=== PATIENT | female | born 1950 | race Hispanic/Latino ===

== ENCOUNTER 2016-10-15 15:41 | Inpatient (IN) | payer MEDICARE ==
[2016-10-15] MEDS ORDERED: SENOKOT PO PRN (16:37)
[2016-10-15] MEDS ORDERED: DULCOLAX PR PRN (16:37)
[2016-10-15] MEDS ORDERED: D50W (25GM) IV PRN (16:37)
[2016-10-15] MEDS ORDERED: PROVENTIL IH PRN (16:43)
--- NOTE | 2016-10-15 18:47 | History and Physical Report ---
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 In comparison, pt acknowledges short term memory loss since recent hospitalization ; also with improving anemia, resolved leukocytosis on today; will need ongoing monitoring for acute renal failure. Pt continues with significant proximal weakness resulting in decline in functional independence. Pt remains an appropriate candidate for IPR course. PREVIOUS FUNCTIONAL STATUS: Independent with ADLs, gait, transfers CURRENT FUNCTIONAL STATUS: modA x2 for bed mobility; therapy evaluations to be initiated in AM HPI 65 y.o. morbidly obese female, with history of abdominal hernia repair in Jun 2016, who presented to [facility] with shortness of breath. Pt was found to have severe sepsis and in acute renal failure. Septic shock thought to be secondary to subcutaneous abdominal wall abscess, s/p incision and drainage on 09/30/2016. Pt required wound vac placement and IV ABX. Acute care course also significant for respiratory failure (extubated on 10/08/16), acute blood loss anemia s/p 1U pRBCs, acute BRBPR (now resolved). Pt was evaluated by PT and noted to have significant difficulty with bed mobility; unable to transfer due to anxiety and severe proximal LE weakness, likely secondary to critical illness myopathy. Pt is now admitted to IRU for aggressive therapies and ongoing medical management. Past History Past Medical History: diabetes, hypertension, other (KEYONNA, CPAP at night) Past Surgical History: hernia repair Social history: , lives with family. denies: smoking, alcohol abuse Family history: hypertension Medications and Allergies Allergies Allergy/AdvReac Type Severity Reaction Status Date / Time No Known Allergies Allergy Unverified 09/29/16 22:13 Home Medications Medication Instructions Recorded Confirmed Last Taken Type Losartan-Hctz 100-25 mg Tab 1 tab PO QDAY 09/30/16 09/30/16 1 Day Ago History Metformin HCl [Glucophage] 1,000 mg PO BID 09/30/16 09/30/16 1 Day Ago History Metoprolol [Lopressor] 25 mg PO BID 09/30/16 09/30/16 1 Day Ago History Pravastatin 100 mg PO QDAY 09/30/16 09/30/16 2 Days Ago History amLODIPine 5 mg PO QDAY 09/30/16 09/30/16 1 Day Ago History ALBUTEROL NEB's [Proventil 0.083% 2.5 mg IH Q4HRT PRN #30 nebu 10/15/16 Unknown Rx NEBS] Acetaminophen [Acetaminophen TAB] 650 mg PO Q6H PRN #30 tablet 10/15/16 Unknown Rx Famotidine [Pepcid] 20 mg PO BID #60 tablet 10/15/16 Unknown Rx Insulin Detemir [Levemir] 18 units SUB-Q DAILY #30 units 10/15/16 Unknown Rx Insulin Regular, Human [HumuLIN R] 1 units SUB-Q ACHS #30 units 10/15/16 Unknown Rx Ipratropium/Albuterol Sulfate 1 ampul IH TIDRT #30 ampul.neb 10/15/16 Unknown Rx [Duoneb 0.5 mg-3 mg/3 ml Soln] Active Meds: Active Medications Acetaminophen (Tylenol) 650 mg PO Q6H PRN PRN Reason: Pain, Mild (1-3) Albuterol (Proventil) 2.5 mg IH Q4HRT PRN PRN Reason: Shortness Of Breath Albuterol/Ipratropium (Duoneb 0.5 Mg-3 Mg/3 Ml Soln) 1 ampul IH TIDRT [facility] Amlodipine Besylate (Norvasc) 5 mg PO QDAY [facility] Bisacodyl (Dulcolax) 10 mg OR QDAY PRN PRN Reason: Constipation unrelieved by MOM Cholecalciferol (Vitamin D3) 1,000 unit PO QDAY [facility] Dextrose (D50w (25gm)) 50 ml IV PRN PRN PRN Reason: Hypoglycemia Famotidine (Pepcid) 20 mg PO BID [facility] Insulin Detemir (Levemir) 18 units SUB-Q DAILY [facility] Insulin Human Regular (Novolin R) 0 units SUB-Q ACHS [facility] PRN Reason: Protocol Senna (Senokot) 8.6 mg PO Q12H PRN PRN Reason: Laxative Effect Review of Systems All systems: negative Constitutional: poor appetite Cardiovascular: no chest pain, no lightheadedness Respiratory: cough Gastrointestinal: no nausea, no vomiting, no constipation Musculoskeletal: muscle weakness Psychiatric: anxiety, memory loss Exam - Constitutional Vitals: Vital Signs - 12hr 10/15/16 17:24 Temperature 97.7 F Respiratory 20 Rate Blood Pressure 138/75 [Right Arm] General appearance: no acute distress, obese, other ( present) - EENT Eyes: EOM intact ENT: hearing intact - Neck Neck: supple, normal ROM - Respiratory Respiratory effort: normal Respiratory: bilateral: CTA - Cardiovascular Rhythm: regular Heart Sounds: Present: S1 & S2 - Extremities Extremities: No edema - Gastrointestinal General gastrointestinal: Present: soft, non-tender, non-distended, normal bowel sounds, other (Wound vac at mid-abdomen) - Musculoskeletal Musculoskeletal: other (2/5 hip flexion and knee ext/flexion; 4/5 ankle DF/PF; 4 /5 BUE) - Neurologic Neurologic: CNII-XII intact, other (sensation grossly intact) - Psychiatric Psychiatric: appropriate mood/affect, intact judgment & insight, no memory intact (oriented to self; ; noted short memory deficits during exam), cooperative - Allied health notes FIMS assesment as documented by PT/OT/ST: Toileting Toileting FIM Score 1. Total Assistance Social interaction/Memory/Problem solving Social Interaction FIM Score 6. Modified [place] Memory FIM Score 3. Moderate Assistance Problem Solving FIM Score 3. Moderate Assistance Eating Eating FIM Score 7. Complete [place] - Labs Labs: Laboratory Results - last 72 hr 10/15/16 16:44 POC Glucose 230 H Assessment and Plan Assessment and plan: 65 y.o. 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 Acute care course further complicated by acute respiratory failure, acute blood loss anemia, GI Bleed. The patient is medically stable, however, requires ongoing medical management. Pt is appropriate for inpatient rehabilitation admission and is thought to be able to tolerate at least 3 hours of therapy a day, 5 days a week including 1 hour of physical therapy, 1 hour of occupational therapy, and 1 hour of speech therapy. Patient is able to understand and follow basic directions and has attainable rehab goals. Potential barriers/ complications include falls, depression, skin breakdown, DVT, PE, syncope, hypotension, anxiety, ileus, malnutrition, respiratory distress. Plan 1. Rehabilitation- Pt will undergo multidisciplinary/integrative rehab PT/OT/ INSEMINATOR, Nursing. Areas to be addressed include, but are not limited to PT for mobility, strengthening, transfer training, ROM, endurance, stairs, balance; OT for ADLs, household tasks, adaptive equipment; INSEMINATOR for cognitive evaluation; Nursing for carryover of therapies, pain control, education, skin integrity, medication management, bowel/bladder management; Nutrition as needed; director agricultural services for discharge planning and equipment needs. Potential interventions include appropriate assistive device or adaptive equipment. Expected overall level of functional improvement by discharge is Christina to supervision for gait, transfers, and ADLs. Pt will tentatively be discharged home with outpatient PT. Estimated length of stay is 10-14 days. 2. Critical illness myopathy- PT/OT to address balance, strengthening, functional independence with self cares and mobility; will consult dietitian to ensure adequate po intake 3. metabolic encephalopathy- likely secondary to acute renal failure and sepsis ; will get INSEMINATOR evaluation and follow 4. acute respiratory failure- pt is currently on continuous oxygen, which she is not on chronically; will wean as tolerated; continue nebs 5. KEYONNA- continue CPAP at night 6. HTN- resume Norvasc in AM; follow; avoid hypotension 7. DM- continue ADA diet; SSI; Levemir; avoid hypoglycemia 8. acute renal failure- labs in AM; Nephrology consulted for ongoing management 9. acute blood loss anemia- labs in AM 10. DVT px- SCDs; TEDs; early ambulation; no A/C due to GI bleed during acute hospital course - Patient Problems (1) Critical illness myopathy Current Visit: No Status: Acute (2) Acute renal failure Current Visit: No Status: Acute Qualifiers: Acute renal failure type: with acute tubular necrosis Qualified Code(s): N17.0 - Acute kidney failure with tubular necrosis (3) Respiratory failure Current Visit: No Status: Acute (4) Acute blood loss anemia Current Visit: Yes Status: Acute (5) HTN (hypertension) Current Visit: Yes Status: Chronic Qualifiers: Hypertension type: essential hypertension Qualified Code(s): I10 - Essential (primary) hypertension (6) Diabetes Current Visit: No Status: Chronic Qualifiers: Diabetes mellitus type: type 2 Diabetes mellitus complication status: with hyperglycemia Diabetes mellitus intermediate accountant insulin use: with intermediate accountant use Qualified Code(s): E11.65 - Type 2 diabetes mellitus with hyperglycemia; Z79.4 - terminal block assembler (current) use of insulin (7) KEYONNA on CPAP Current Visit: Yes Status: Acute (8) Morbid obesity due to excess calories Current Visit: Yes Status: Acute (9) Metabolic encephalopathy Current Visit: Yes Status: Acute
[2016-10-15] MEDS: PEPCID PO SCH (22:38)
[2016-10-15] MEDS: DUONEB 0.5 MG-3 MG/3 ML SOLN IH SCH (22:39)
--- NOTE | 2016-10-16 06:42 | Admit Criteria Form ---
Admission Criteria Documentation: RENAL FAILURE, ACUTE Clinical Indications for Admission to Inpatient Care ( Place 'X' for any and all applicable criteria): Admission is indicated for ALL (if I & II) or III of the following [A](2)(3)(4)( 5)(6)(7): [ ]I. Acute renal failure as indicated by ANY ONE of the following: [ ]a) A 3-fold rise in serum creatinine from baseline [ ]b) Serum creatinine greater than 4 mg/dL (354 micromoles/L) with an acute rise greater than 0.5 mg/dL (44.2 micromoles/L) [ ]c) Reduction of more than 75% in estimated glomerular filtration rate from baseline [ ]d) Estimated glomerular filtration rate less than 35 mL/min/1.73m2 (0.59mL/sec/1.73m2)in a child up to 18 years of age [ ]e) Anuria indicated by ALL of the following: [ ]i) Adequate volume status [ ]ii) Cessation of urine output indicated by ANY ONE of the following: [ ]1) Urine output less than 0.3 mL/kg/hr for 24 hours [ ]2) Anuria (urine output less than 0.1 mL/kg/ hr) for 12 hours [ ] II. Renal failure cannot be managed in an outpatient setting or observational care setting as indicating by ANY ONE of the following: [ ]a) Altered mental status that is severe or persistent [ ]b) Volume overload or Respiratory distress (eg, clinically significant pulmonary edema) that is severe or persistent [ ]c) Cardiac arrhythmias of immediate concern [ ]d) Hemodynamic instability [ ]e) Clinically significant electrolyte abnormality that requires inpatient care (eg, hyperkalemia with severe ECG findings)[B] [ ]f) Clinically significant metabolic abnormality (eg, acidosis) that is severe or persistent [ ]g) Acute treatment of renal failure (eg, renal replacement therapy) not feasible or appropriate in observational care setting [ ]h) Clinical situation too unstable or uncertain (eg, inadequate urine output, ongoing decline in renal function, etiology unclear) [ ]i) Necessary support and caregiver ability to comply with outpatient treatment cannot be arranged in observation care timeframe (eg, within 24 hours) [ ]j) Other significant finding or clinical condition judged not to be within scope of observation care [X ]III.General contraindications and/or Inappropriate clinical situations for Observational Care in patients with Acute Renal Failure, when ANY ONE of the following is required: [X ]a) Prediction of prolongation of LOS based on ANY ONE of the following may be considered as a contraindication for observational care 2, 3, 4, 5, 6, 7, 8 , 9, 10, 11 [ ]i) Age > 65 yrs. [ ]ii) Patient arriving by ambulance [ ]iii) Patient with high acuity [ ]iv) Patient requiring vital sign monitoring [X ]v) Patient on IV medication [ ]b) Systolic blood pressures 180mmHg 3,12 [ ]c) Patient with altered mental status including delirium and other alteration of consciousness, (3) [ ]d) Patient whose discharge disposition will be to a half-way home or rehabilitation home should not be managed in Emergency Department Observation Unit. CMS rule requires 3 days hospital stay before such placement.3,13 [ ]e) Patient with failure to thrive due to broad array of etiologies 3, 16,17 [ ]f) Inability to ambulate 3,14 Extended stay beyond goal length of stay may be needed for(13) [ ]a) Continuing uremic complications [ ]b) Care for comorbidities [ ]c) acute renal failure [ ]d) Need for dialysis The original [employer] content created by [employer] has been revised. The portions of the content which have been revised are identified through the use of italic text or in bold, and [facility] has neither reviewed nor approved the modified material. All other unmodified content is copyright [facility] [employer]. Please see references footnoted in the original [facility] edition 2016 Admission Criteria Met: Yes
[2016-10-16 06:43] LABS: Basophils % (Auto) 1.4 % (0.0-1.8); Eosinophils % (Auto) 5.9 % (0.0-4.3); Hematocrit 26.8 % (30.3-42.9); Hemoglobin 8.7 gm/dl (10.1-14.3); Mean Corpuscular HGB Conc 32 % (30-34); Mean Corpuscular Volume 79 fl (79-97); Platelet Count 504 K/mm3 (140-440); Red Cell Distribution Width 16.9 % (13.2-15.2)
[2016-10-16 06:44] LABS: Mean Corpuscular Hemoglobin 26 pg (28-32)
[2016-10-16 07:04] LABS: Albumin 2.5 g/dL (3.9-5); Albumin/Globulin Ratio 0.8 %; BUN/Creatinine Ratio 10.86; Bilirubin,Total 0.3 mg/dL (0.1-1.2); Calcium 8.7 mg/dL (8.4-10.2); Chloride 102.3 mmol/L (98-107); Potassium 3.5 mmol/L (3.6-5.0); Total Protein 5.5 g/dL (6.3-8.2)
[2016-10-16 07:23] LABS: Prealbumin 0.2 g/L (0.200-0.400)
[2016-10-16] MEDS ORDERED: K-DUR PO ONE (09:00)
[2016-10-16] MEDS: NORVASC PO SCH (09:05)
[2016-10-16] MEDS: PEPCID PO SCH ×2 (09:06→22:24)
[2016-10-16] MEDS: VITAMIN D3 PO SCH (09:06)
[2016-10-16] MEDS: DUONEB 0.5 MG-3 MG/3 ML SOLN IH SCH ×3 (09:07→20:35)
[2016-10-16] MEDS: LEVEMIR SUB-Q SCH (09:08)
--- NOTE | 2016-10-16 12:17 | Consultation ---
History of Present Illness - Reason for Consult acute renal failure - History of Present Illness Patient is a 65 yo WF with pmh significant for Morbid Obesity, DM type 2 and Hypertension admitted on 09/29/16 with abdominal wall abscess, Septic shock, Severe lactic acidosis, Respiratory failure and Acute Kidney Injury. She was intubated for several days before extubation. She underwent I&D of the abdominal wall abscess and she has wound vac. Patient was transferred to rehab due to deconditioning. Our service followed the patient throughout the hospital course due to GREG. Patient continue to have elevated creatinine from her baseline of 1.1 about 2 months ago. Patient PO intake in poor for the past few days and has diarrhea. Patient denies any N or V. Past History Past Medical History: diabetes, hypertension, other (KEYONNA, CPAP at night) Past Surgical History: hernia repair Social history: , lives with family. denies: smoking, alcohol abuse Family history: hypertension Medications and Allergies Allergies Allergy/AdvReac Type Severity Reaction Status Date / Time No Known Allergies Allergy Unverified 09/29/16 22:13 Home Medications Medication Instructions Recorded Confirmed Last Taken Type Losartan-Hctz 100-25 mg Tab 1 tab PO QDAY 09/30/16 09/30/16 1 Day Ago History Metformin HCl [Glucophage] 1,000 mg PO BID 09/30/16 09/30/16 1 Day Ago History Metoprolol [Lopressor] 25 mg PO BID 09/30/16 09/30/16 1 Day Ago History Pravastatin 100 mg PO QDAY 09/30/16 09/30/16 2 Days Ago History amLODIPine 5 mg PO QDAY 09/30/16 09/30/16 1 Day Ago History ALBUTEROL NEB's [Proventil 0.083% 2.5 mg IH Q4HRT PRN #30 nebu 10/15/16 Unknown Rx NEBS] Acetaminophen [Acetaminophen TAB] 650 mg PO Q6H PRN #30 tablet 10/15/16 Unknown Rx Famotidine [Pepcid] 20 mg PO BID #60 tablet 10/15/16 Unknown Rx Insulin Detemir [Levemir] 18 units SUB-Q DAILY #30 units 10/15/16 Unknown Rx Insulin Regular, Human [HumuLIN R] 1 units SUB-Q ACHS #30 units 10/15/16 Unknown Rx Ipratropium/Albuterol Sulfate 1 ampul IH TIDRT #30 ampul.neb 10/15/16 Unknown Rx [Duoneb 0.5 mg-3 mg/3 ml Soln] Active Meds: Active Medications Acetaminophen (Tylenol) 650 mg PO Q6H PRN PRN Reason: Pain, Mild (1-3) Albuterol (Proventil) 2.5 mg IH Q4HRT PRN PRN Reason: Shortness Of Breath Albuterol/Ipratropium (Duoneb 0.5 Mg-3 Mg/3 Ml Soln) 1 ampul IH TIDRT [facility] Last Admin: 10/16/16 09:07 Dose: 1 ampul Amlodipine Besylate (Norvasc) 5 mg PO QDAY [facility] Last Admin: 10/16/16 09:05 Dose: 5 mg Bisacodyl (Dulcolax) 10 mg DE QDAY PRN PRN Reason: Constipation unrelieved by MOM Cholecalciferol (Vitamin D3) 1,000 unit PO QDAY [facility] Last Admin: 10/16/16 09:06 Dose: 1,000 unit Dextrose (D50w (25gm)) 50 ml IV PRN PRN PRN Reason: Hypoglycemia Famotidine (Pepcid) 20 mg PO BID [facility] Last Admin: 10/16/16 09:06 Dose: 10 mg Insulin Detemir (Levemir) 18 units SUB-Q DAILY [facility] Last Admin: 10/16/16 09:08 Dose: 18 units Insulin Human Regular (Novolin R) 0 units SUB-Q ACHS [facility] PRN Reason: Protocol Last Admin: 10/16/16 07:30 Dose: Not Given Senna (Senokot) 8.6 mg PO Q12H PRN PRN Reason: Laxative Effect Review of Systems Constitutional: weight loss, poor appetite, no fever, no chills Ears, nose, mouth and throat: no sinus pressure, no sinus pain Breasts: deferred Cardiovascular: no chest pain, no orthopnea, no edema, no lightheadedness, no shortness of breath Respiratory: no cough, no hemoptysis, no shortness of breath Gastrointestinal: diarrhea, BRBPR, hematochezia, no abdominal pain, no nausea, no vomiting Rectal: incontinence Musculoskeletal: no neck stiffness, no neck pain, no leg numbness/tingling Integumentary: sores, no rash, no jaundice Neurological: no paralysis, no seizures, no syncope Psychiatric: disorientation Endocrine: weight change Hematologic/Lymphatic: easy bleeding Allergic/Immunologic: anaphylaxis, angioedema Exam - Vital Signs Vital signs: Vital Signs Temp Pulse Resp BP Pulse Ox 97.7 F 86 20 138/75 98 10/15/16 17:00 10/15/16 17:00 10/15/16 17:00 10/15/16 17:00 10/15/16 17:00 - General Appearance General appearance: well-developed, obese, other (no distress) EENT: PERRL, mucous membranes moist, hearing intact, vision intact Neck: Present: neck supple, trachea midline Respiratory: Clear to Ascultation Heart: regular, S1S2, no murmurs Gastrointestinal: Present: normoactive bowel sounds, other (wound vac noted). Absent: tenderness, distended Integumentary: warm and dry Neurologic: no focal deficit, no asterixis, alert and oriented x3, CN 3-12 intact Musculoskeletal: Present: other (no edema) Psychiatric: cooperative Results - Lab Results 10/16/16 06:18 10/16/16 06:18 Most recent lab results Calcium 8.7 mg/dL (8.4-10.2) 10/16/16 06:18 Assessment and Plan - Patient Problems (1) GREG (acute kidney injury) Current Visit: Yes Status: Acute Plan to address problem: Acute Kidney Injury in the setting of Septic shock. Creatinine is overall better since admission, but back to her baseline. Encouraged to increase fluid intake. Monitor renal function. Lytes are better. (2) Septic shock Current Visit: No Status: Acute Plan to address problem: Improved. (3) Abscess Current Visit: No Status: Acute Plan to address problem: S/p I&D. (4) Acute blood loss anemia Current Visit: Yes Status: Acute (5) Metabolic encephalopathy Current Visit: Yes Status: Acute
--- NOTE | 2016-10-16 12:33 | Consultation ---
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 At that time she was was found to have severe sepsis and in acute renal failure and later developed septic shock thought to be secondary to subcutaneous abdominal wall abscess; she had incision and drainage on 09/30/2016 with placement of wound and was aslo treated with IV ABX. She also was treated for acute respiratory failure requiring intubation and was extubated on 10/08/16 Past History Past Medical History: diabetes, hypertension, other (KEYONNA, CPAP at night) Past Surgical History: hernia repair, Other (I/D of abdominal wall abscess) Social history: , lives with family. denies: smoking, alcohol abuse Family history: hypertension Medications and Allergies Allergies Allergy/AdvReac Type Severity Reaction Status Date / Time No Known Allergies Allergy Unverified 09/29/16 22:13 Home Medications Medication Instructions Recorded Confirmed Last Taken Type Losartan-Hctz 100-25 mg Tab 1 tab PO QDAY 09/30/16 09/30/16 1 Day Ago History Metformin HCl [Glucophage] 1,000 mg PO BID 09/30/16 09/30/16 1 Day Ago History Metoprolol [Lopressor] 25 mg PO BID 09/30/16 09/30/16 1 Day Ago History Pravastatin 100 mg PO QDAY 09/30/16 09/30/16 2 Days Ago History amLODIPine 5 mg PO QDAY 09/30/16 09/30/16 1 Day Ago History ALBUTEROL NEB's [Proventil 0.083% 2.5 mg IH Q4HRT PRN #30 nebu 10/15/16 Unknown Rx NEBS] Acetaminophen [Acetaminophen TAB] 650 mg PO Q6H PRN #30 tablet 10/15/16 Unknown Rx Famotidine [Pepcid] 20 mg PO BID #60 tablet 10/15/16 Unknown Rx Insulin Detemir [Levemir] 18 units SUB-Q DAILY #30 units 10/15/16 Unknown Rx Insulin Regular, Human [HumuLIN R] 1 units SUB-Q ACHS #30 units 10/15/16 Unknown Rx Ipratropium/Albuterol Sulfate 1 ampul IH TIDRT #30 ampul.neb 10/15/16 Unknown Rx [Duoneb 0.5 mg-3 mg/3 ml Soln] Active Meds: Active Medications Acetaminophen (Tylenol) 650 mg PO Q6H PRN PRN Reason: Pain, Mild (1-3) Albuterol (Proventil) 2.5 mg IH Q4HRT PRN PRN Reason: Shortness Of Breath Albuterol/Ipratropium (Duoneb 0.5 Mg-3 Mg/3 Ml Soln) 1 ampul IH TIDRT [facility] Last Admin: 10/16/16 09:07 Dose: 1 ampul Amlodipine Besylate (Norvasc) 5 mg PO QDAY [facility] Last Admin: 10/16/16 09:05 Dose: 5 mg Bisacodyl (Dulcolax) 10 mg AL QDAY PRN PRN Reason: Constipation unrelieved by MOM Cholecalciferol (Vitamin D3) 1,000 unit PO QDAY [facility] Last Admin: 10/16/16 09:06 Dose: 1,000 unit Dextrose (D50w (25gm)) 50 ml IV PRN PRN PRN Reason: Hypoglycemia Famotidine (Pepcid) 20 mg PO BID [facility] Last Admin: 10/16/16 09:06 Dose: 10 mg Insulin Detemir (Levemir) 18 units SUB-Q DAILY [facility] Last Admin: 10/16/16 09:08 Dose: 18 units Insulin Human Regular (Novolin R) 0 units SUB-Q [facility] PRN Reason: Protocol Last Admin: 10/16/16 12:16 Dose: 2 units Senna (Senokot) 8.6 mg PO Q12H PRN PRN Reason: Laxative Effect Review of Systems All systems: negative Constitutional: no weight loss, no weight gain, no fever, no chills, no sweats Ears, nose, mouth and throat: no ear pain, no ear discharge, no tinnitis, no decreased hearing, no nose pain Breasts: normal Cardiovascular: no chest pain, no orthopnea, no palpitations, no rapid/ irregular heart beat Respiratory: no cough, no cough with sputum, no excessive sputum, no hemoptysis Gastrointestinal: no abdominal pain, no nausea, no vomiting, no diarrhea Genitourinary Female: no dyspareunia, no dysmenorrhea, no pelvic pain, no flank pain Rectal: no pain Musculoskeletal: no neck stiffness, no neck pain, no shooting arm pain, no arm numbness/tingling Integumentary: no rash, no pruritis, no redness, no sores Neurological: no head injury, no transient paralysis, no paralysis, no weakness Psychiatric: no anxiety, no memory loss, no change in sleep habits Endocrine: no cold intolerance, no heat intolerance, no polyphagia, no excessive thirst Hematologic/Lymphatic: no easy bruising, no easy bleeding Allergic/Immunologic: no urticaria Exam - Constitutional Vitals: Temp Pulse Resp BP Pulse Ox 97.8 F 82 16 136/80 97 10/15/16 19:00 10/16/16 09:18 10/16/16 09:18 10/16/16 09:05 10/16/16 10:00 General appearance: Present: no acute distress, well-nourished - EENT Eyes: Present: PERRL, EOM intact. Absent: scleral icterus, conjunctival injection ENT: hearing intact, clear oral mucosa, no oropharyngeal erythema, no poor dentition - Neck Neck: Present: supple, normal ROM. Absent: enlarged thyroid - Respiratory Respiratory effort: normal Respiratory: negative: diminished, rales, rhonchi, wheezing - Cardiovascular Rhythm: regular Heart Sounds: Present: S1 & S2. Absent: gallop - Extremities Extremities: no ischemia, pulses intact, pulses symmetrical, No edema Peripheral Pulses: within normal limits - Abdominal General gastrointestinal: Present: soft, non-tender, non-distended, normal bowel sounds Female genitourinary: Present: deferred - Rectal Rectal Exam: deferred - Integumentary Integumentary: Present: clear - Musculoskeletal Musculoskeletal: strength equal bilaterally - Psychiatric Psychiatric: appropriate mood/affect, intact judgment & insight, cooperative - Neurologic Neurologic: CNII-XII intact, moves all extremities Results - Labs CBC & Chem 7: 10/16/16 06:18 10/16/16 06:18 Labs: Abnormal lab results 10/15/16 10/15/16 10/16/16 Range/Units 16:44 21:30 06:18 RBC 3.40 L (3.65-5.03) M/mm3 Hgb 8.7 L (10.1-14.3) gm/dl Hct 26.8 L (30.3-42.9) % MCH 26 L (28-32) pg RDW 16.9 H (13.2-15.2) % Plt Count 504 H (140-440) K/mm3 Eos % (Auto) 5.9 H (0.0-4.3) % Eos # 0.6 H (0.0-0.4) K/mm3 Baso # 0.2 H (0.0-0.1) K/mm3 Potassium (3.6-5.0) mmol/L BUN (7-17) mg/dL Creatinine (0.7-1.2) mg/dL Glucose (65-100) mg/dL POC Glucose 230 H 202 H (70-105) Total Protein (6.3-8.2) g/dL Albumin (3.9-5) g/dL 10/16/16 10/16/16 Range/Units 06:18 06:26 RBC (3.65-5.03) M/mm3 Hgb (10.1-14.3) gm/dl Hct (30.3-42.9) % MCH (28-32) pg RDW (13.2-15.2) % Plt Count (140-440) K/mm3 Eos % (Auto) (0.0-4.3) % Eos # (0.0-0.4) K/mm3 Baso # (0.0-0.1) K/mm3 Potassium 3.5 L (3.6-5.0) mmol/L BUN 25 H (7-17) mg/dL Creatinine 2.3 H (0.7-1.2) mg/dL Glucose 144 H (65-100) mg/dL POC Glucose 147 H (70-105) Total Protein 5.5 L (6.3-8.2) g/dL Albumin 2.5 L (3.9-5) g/dL Assessment and Plan 1. Diabetes type 2 with insulin dependence-fair control, continue insulin regime. Continue to monitor Accu-Cheks 2. Benign hypertension-12, continue amlodipine. Monitor blood pressure and adjust as needed 3. Obstructive sleep apnea-nocturnal BiPAP 4. Acute renal failure-now improving, being followed by nephrology. Will defer to nephrology for further management. As per nephrology creatinine is back to baseline; patient ahs luis- recommend to D/C if OK with renal and primary Team 5. Debility-management as per the primary team 6. DVT prophylaxis-management as per the primary team Thanks for consulting us we will follow patient with you
--- NOTE | 2016-10-16 12:57 | Progress Note ---
Assessment and Plan 65 y.o. 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 Acute care course further complicated by acute respiratory failure, acute blood loss anemia, GI Bleed. - Critical illness myopathy- aggressive PT/OT to address balance, strengthening , functional independence with self cares and mobility - metabolic encephalopathy- likely secondary to acute renal failure and sepsis; [employer] to follow; pt with cognitive deficits on evaluation - acute respiratory failure- pt is currently on continuous oxygen, which she is not on chronically; will wean as tolerated; continue nebs - KEYONNA- continue CPAP at night - HTN- continue Norvasc - DM- stable; continue ADA diet; SSI; Levemir - acute renal failure- Nephrology following -acute blood loss anemia- stable - DVT px- SCDs; TEDs; early ambulation; no A/C due to GI bleed during acute hospital course - Patient Problems (1) Critical illness myopathy Current Visit: No Status: Acute (2) Acute renal failure Current Visit: No Status: Acute Qualifiers: Acute renal failure type: with acute tubular necrosis Qualified Code(s): N17.0 - Acute kidney failure with tubular necrosis (3) Respiratory failure Current Visit: Yes Status: Acute Qualifiers: Chronicity: acute (4) Acute blood loss anemia Current Visit: Yes Status: Acute (5) HTN (hypertension) Current Visit: Yes Status: Chronic Qualifiers: Hypertension type: essential hypertension Qualified Code(s): I10 - Essential (primary) hypertension (6) Diabetes Current Visit: Yes Status: Chronic Qualifiers: Diabetes mellitus type: type 2 Diabetes mellitus complication status: with hyperglycemia Diabetes mellitus assisted insulin use: with assisted use Qualified Code(s): E11.65 - Type 2 diabetes mellitus with hyperglycemia; Z79.4 - [facility] (current) use of insulin (7) KEYONNA on CPAP Current Visit: Yes Status: Acute (8) Morbid obesity due to excess calories Current Visit: Yes Status: Acute (9) Metabolic encephalopathy Current Visit: Yes Status: Acute Subjective Date of service: 10/16/16 Principal diagnosis: critical illness myopathy Interval history: Pt seen in room this AM; F/U IPR course, critical illness myopathy. No new complaints overnight; rested well; continues with decreased po intake Objective - Constitutional Vitals: Vital Signs - 12hr 10/16/16 10/16/16 10/16/16 09:05 09:07 09:08 Pulse Rate 85 Pulse Rate [ 85 Anterior Bilateral Throughout] Respiratory 17 Rate [Anterior Bilateral Throughout] Blood Pressure 136/80 O2 Sat by Pulse 98 Oximetry 10/16/16 10/16/16 09:18 10:00 Pulse Rate Pulse Rate [ 82 Anterior Bilateral Throughout] Respiratory 16 Rate [Anterior Bilateral Throughout] Blood Pressure O2 Sat by Pulse 97 Oximetry General appearance: Present: no acute distress, obese - EENT Eyes: EOM intact ENT: hearing intact - Neck Neck: supple, normal ROM - Respiratory Respiratory effort: normal Extremities: No edema - Gastrointestinal General gastrointestinal: Present: other (wound vac to min-abdomen) - Neurologic Neurologic: moves all extremities (proximal weakness in BLE ) - Psychiatric Psychiatric: appropriate mood/affect, no memory intact, cooperative - Allied health notes Allied health notes reviewed: ST (modified to mechanical soft, ground), OT (S/U to total A for ADLs) - Labs CBC & Chem 7: 10/16/16 06:18 10/16/16 06:18 Labs: Abnormal lab results 10/15/16 10/15/16 10/16/16 Range/Units 16:44 21:30 06:18 RBC 3.40 L (3.65-5.03) M/mm3 Hgb 8.7 L (10.1-14.3) gm/dl Hct 26.8 L (30.3-42.9) % MCH 26 L (28-32) pg RDW 16.9 H (13.2-15.2) % Plt Count 504 H (140-440) K/mm3 Eos % (Auto) 5.9 H (0.0-4.3) % Eos # 0.6 H (0.0-0.4) K/mm3 Baso # 0.2 H (0.0-0.1) K/mm3 Potassium (3.6-5.0) mmol/L BUN (7-17) mg/dL Creatinine (0.7-1.2) mg/dL Glucose (65-100) mg/dL POC Glucose 230 H 202 H (70-105) Total Protein (6.3-8.2) g/dL Albumin (3.9-5) g/dL 10/16/16 10/16/16 10/16/16 Range/Units 06:18 06:26 11:43 RBC (3.65-5.03) M/mm3 Hgb (10.1-14.3) gm/dl Hct (30.3-42.9) % MCH (28-32) pg RDW (13.2-15.2) % Plt Count (140-440) K/mm3 Eos % (Auto) (0.0-4.3) % Eos # (0.0-0.4) K/mm3 Baso # (0.0-0.1) K/mm3 Potassium 3.5 L (3.6-5.0) mmol/L BUN 25 H (7-17) mg/dL Creatinine 2.3 H (0.7-1.2) mg/dL Glucose 144 H (65-100) mg/dL POC Glucose 147 H 170 H (70-105) Total Protein 5.5 L (6.3-8.2) g/dL Albumin 2.5 L (3.9-5) g/dL
[2016-10-17] MEDS: DUONEB 0.5 MG-3 MG/3 ML SOLN IH SCH ×3 (07:18→19:36)
[2016-10-17] MEDS: NORVASC PO SCH (09:15)
[2016-10-17] MEDS: PEPCID PO SCH ×2 (09:16→22:02)
[2016-10-17] MEDS: VITAMIN D3 PO SCH (09:16)
[2016-10-17] MEDS: LEVEMIR SUB-Q SCH (09:17)
--- NOTE | 2016-10-17 09:53 | Progress Note ---
Assessment and Plan - Patient Problems (1) GREG (acute kidney injury) Current Visit: Yes Status: Acute Plan to address problem: Acute Kidney Injury in the setting of Septic shock. Creatinine is overall better since admission, but not back to her baseline. Encouraged to increase fluid intake. Monitor renal function. (2) Septic shock Current Visit: No Status: Acute Plan to address problem: Improved. Lactic acidosis improved. (3) Abscess Current Visit: No Status: Acute Plan to address problem: S/p I&D. (4) Acute blood loss anemia Current Visit: Yes Status: Acute (5) Metabolic encephalopathy Current Visit: Yes Status: Acute Subjective Date of service: 10/17/16 Principal diagnosis: critical illness myopathy Interval history: No new complaint. Objective - Vital Signs Vital signs: Vital Signs - 12hr 10/16/16 10/16/16 10/17/16 22:00 22:24 07:18 Pulse Rate 86 Pulse Rate [ 86 Anterior Bilateral Throughout] Respiratory 18 Rate Respiratory 16 Rate [Anterior Bilateral Throughout] Blood Pressure O2 Sat by Pulse 96 98 Oximetry 10/17/16 10/17/16 10/17/16 07:21 07:28 09:15 Pulse Rate 88 Pulse Rate [ 86 Anterior Bilateral Throughout] Respiratory Rate Respiratory 18 Rate [Anterior Bilateral Throughout] Blood Pressure 130/82 O2 Sat by Pulse 97 Oximetry - General Appearance General appearance: well-developed, obese, other (no distress) EENT: PERRL, mucous membranes moist, hearing intact, vision intact Neck: no carotid bruit, supple Respiratory: Present: Clear to Ascultation Cardiology: regular, S1S2, no murmurs Gastrointestinal: normoactive bowel sounds, no tenderness, no distended, no guarding Integumentary: warm and dry Neurologic: no focal deficit, no asterixis, confused, disoriented, CN 3-12 intact Musculoskeletal: other (no edema) Psychiatric: cooperative - Lab 10/16/16 06:18 10/16/16 06:18 Most recent lab results Calcium 8.7 mg/dL (8.4-10.2) 10/16/16 06:18
--- NOTE | 2016-10-17 10:59 | Progress Note ---
Assessment and Plan Assessment and plan: 1. Diabetes type 2 with insulin dependence-fair control, continue insulin regime. Continue to monitor Accu-Cheks 2. Benign hypertension-continue amlodipine. Monitor blood pressure and adjust as needed 3. Obstructive sleep apnea-nocturnal BiPAP 4. Acute renal failure-now improving, being followed by nephrology. Will defer to nephrology for further management. 5. Debility-management as per the primary team 6. DVT prophylaxis-management as per the primary team History Interval history: f/u DM, HTN Patient seen on the bedside, she has no complaints today Hospitalist Physical - Constitutional Vitals: Temp Pulse Resp BP Pulse Ox 98.1 F 88 18 130/82 97 10/16/16 20:00 10/17/16 09:15 10/17/16 07:28 10/17/16 09:15 10/17/16 07:21 General appearance: Present: no acute distress, obese - EENT Eyes: Present: PERRL, EOM intact. Absent: scleral icterus, conjunctival injection ENT: hearing intact, clear oral mucosa, no oropharyngeal erythema, no poor dentition - Neck Neck: Present: supple, normal ROM. Absent: enlarged thyroid, masses or JVD - Respiratory Respiratory effort: normal Respiratory: negative: diminished, rales, rhonchi, wheezing - Cardiovascular Rhythm: regular Heart Sounds: Present: S1 & S2. Absent: gallop - Extremities Extremities: no ischemia, pulses intact, pulses symmetrical, No edema Peripheral Pulses: within normal limits - Abdominal General gastrointestinal: soft, non-tender, non-distended, normal bowel sounds - Integumentary Integumentary: Present: clear - Psychiatric Psychiatric: appropriate mood/affect, intact judgment & insight, cooperative - Neurologic Neurologic: CNII-XII intact, moves all extremities Results - Labs CBC & Chem 7: 10/16/16 06:18 10/16/16 06:18 Labs: Laboratory Last Values WBC 11.0 K/mm3 (4.5-11.0) 10/16/16 06:18 RBC 3.40 M/mm3 (3.65-5.03) L 10/16/16 06:18 Hgb 8.7 gm/dl (10.1-14.3) L 10/16/16 06:18 Hct 26.8 % (30.3-42.9) L 10/16/16 06:18 MCV 79 fl (79-97) 10/16/16 06:18 MCH 26 pg (28-32) L 10/16/16 06:18 MCHC 32 % (30-34) 10/16/16 06:18 RDW 16.9 % (13.2-15.2) H 10/16/16 06:18 Plt Count 504 K/mm3 (140-440) H 10/16/16 06:18 Lymph % (Auto) 22.6 % (13.4-35.0) 10/16/16 06:18 [place] % (Auto) 7.3 % (0.0-7.3) 10/16/16 06:18 Eos % (Auto) 5.9 % (0.0-4.3) H 10/16/16 06:18 Baso % (Auto) 1.4 % (0.0-1.8) 10/16/16 06:18 Lymph # 2.5 K/mm3 (1.2-5.4) 10/16/16 06:18 [place] # 0.8 K/mm3 (0.0-0.8) 10/16/16 06:18 Eos # 0.6 K/mm3 (0.0-0.4) H 10/16/16 06:18 Baso # 0.2 K/mm3 (0.0-0.1) H 10/16/16 06:18 Seg Neutrophils % 62.8 % (40.0-70.0) 10/16/16 06:18 Seg Neutrophils # 6.9 K/mm3 (1.8-7.7) 10/16/16 06:18 Sodium 144 mmol/L (137-145) 10/16/16 06:18 Potassium 3.5 mmol/L (3.6-5.0) L 10/16/16 06:18 Chloride 102.3 mmol/L (98-107) 10/16/16 06:18 Carbon Dioxide 25 mmol/L (22-30) 10/16/16 06:18 Anion Gap 20 mmol/L 10/16/16 06:18 BUN 25 mg/dL (7-17) H 10/16/16 06:18 Creatinine 2.3 mg/dL (0.7-1.2) H 10/16/16 06:18 Estimated GFR 21 ml/min 10/16/16 06:18 BUN/Creatinine Ratio 10.86 % 10/16/16 06:18 Glucose 144 mg/dL (65-100) H 10/16/16 06:18 POC Glucose 166 (70-105) H 10/17/16 08:04 Calcium 8.7 mg/dL (8.4-10.2) 10/16/16 06:18 Total Bilirubin 0.3 mg/dL (0.1-1.2) 10/16/16 06:18 AST 15 units/L (5-40) 10/16/16 06:18 ALT 22 units/L (7-56) 10/16/16 06:18 Alkaline Phosphatase 86 units/L (35-129) 10/16/16 06:18 Total Protein 5.5 g/dL (6.3-8.2) L 10/16/16 06:18 Albumin 2.5 g/dL (3.9-5) L 10/16/16 06:18 Albumin/Globulin Ratio 0.8 % 10/16/16 06:18 Prealbumin 0.200 g/L (0.200-0.400) 10/16/16 06:18
[2016-10-18 05:32] LABS: Hematocrit 26.6 % (30.3-42.9); Hemoglobin 8.9 gm/dl (10.1-14.3); Mean Corpuscular HGB Conc 33 % (30-34); Mean Corpuscular Hemoglobin 26 pg (28-32); Mean Corpuscular Volume 78 fl (79-97); Platelet Count 460 K/mm3 (140-440); Red Cell Distribution Width 16.8 % (13.2-15.2); White Blood Count 9.5 K/mm3 (4.5-11.0)
[2016-10-18 05:49] LABS: BUN/Creatinine Ratio 10.9; Calcium 8.8 mg/dL (8.4-10.2); Chloride 99.1 mmol/L (98-107); Potassium 3.4 mmol/L (3.6-5.0)
[2016-10-18 06:05] LABS: Magnesium 1.7 mg/dL (1.7-2.3); Phosphorous 5.7 mg/dL (2.5-4.5)
[2016-10-18] MEDS: DUONEB 0.5 MG-3 MG/3 ML SOLN IH SCH ×3 (07:41→19:19)
[2016-10-18] MEDS: NORVASC PO SCH (09:39)
[2016-10-18] MEDS: PEPCID PO SCH ×2 (09:39→21:38)
[2016-10-18] MEDS: LEVEMIR SUB-Q SCH (09:41)
[2016-10-18] MEDS: VITAMIN D3 PO SCH (09:41)
--- NOTE | 2016-10-18 10:49 | Progress Note ---
Assessment and Plan - Patient Problems (1) GREG (acute kidney injury) Current Visit: Yes Status: Acute Plan to address problem: Acute Kidney Injury in the setting of Septic shock. Creatinine is overall better since admission, but not back to her baseline. Renal function is stable. Encouraged to increase fluid intake. Monitor renal function. (2) Septic shock Current Visit: No Status: Acute Plan to address problem: Improved. Lactic acidosis improved. (3) Abscess Current Visit: No Status: Acute Plan to address problem: S/p I&D. Wound vac in place. (4) Acute blood loss anemia Current Visit: Yes Status: Acute (5) Metabolic encephalopathy Current Visit: Yes Status: Acute Subjective Date of service: 10/18/16 Principal diagnosis: critical illness myopathy Interval history: Patient denies any new complaint. Objective - Vital Signs Vital signs: Vital Signs - 12hr 10/18/16 10/18/16 10/18/16 03:42 07:41 07:43 Temperature 99.0 F Pulse Rate Pulse Rate [ 87 Anterior Bilateral Throughout] Pulse Rate [ 96 H Apical] Respiratory 20 Rate Respiratory 18 Rate [Anterior Bilateral Throughout] Blood Pressure Blood Pressure 135/74 [Right Arm] O2 Sat by Pulse 91 98 Oximetry 10/18/16 10/18/16 07:53 09:39 Temperature Pulse Rate 96 H Pulse Rate [ 87 Anterior Bilateral Throughout] Pulse Rate [ Apical] Respiratory Rate Respiratory 18 Rate [Anterior Bilateral Throughout] Blood Pressure 105/53 Blood Pressure [Right Arm] O2 Sat by Pulse Oximetry - General Appearance General appearance: well-developed, obese, other (no distress) EENT: PERRL, mucous membranes dry, hearing intact, vision intact Neck: no carotid bruit, supple Respiratory: Present: Clear to Ascultation Cardiology: regular, S1S2, no murmurs Gastrointestinal: normoactive bowel sounds, no tenderness, no distended, no guarding, other (abdominal wall wound vac noted) Integumentary: warm and dry Neurologic: no focal deficit, no asterixis, confused, disoriented, CN 3-12 intact Musculoskeletal: other (no edema) Psychiatric: cooperative - Lab 10/18/16 05:11 10/18/16 05:11 Most recent lab results Calcium 8.8 mg/dL (8.4-10.2) 10/18/16 05:11 Phosphorus 5.7 mg/dL (2.5-4.5) H 12/26/16 05:11 Magnesium 1.7 mg/dL (1.7-2.3) 10/18/16 05:11
--- NOTE | 2016-10-18 11:32 | Progress Note ---
Assessment and Plan 65 y.o. 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 Acute care course further complicated by acute respiratory failure, acute blood loss anemia, GI Bleed. - Critical illness myopathy- aggressive PT/OT to address balance, strengthening , functional independence with self cares and mobility - metabolic encephalopathy- improving. cont. Speech - acute respiratory failure- pt is currently on continuous oxygen, which she is not on chronically; will wean as tolerated; continue nebs, will add incentive spirometer. still has decreased BS on base. - KEYONNA- continue CPAP at night - HTN- continue Norvasc - DM- stable; continue ADA diet; SSI; Levemir - acute renal failure- Nephrology f/u appreciated. Cr. 2.2 -acute blood loss anemia- stable. Hb. 8.7. slowly improving, will recheck. - DVT px- SCDs; TEDs; early ambulation; no A/C due to GI bleed during acute hospital course - Patient Problems (1) GREG (acute kidney injury) Current Visit: Yes Status: Acute (2) Acute blood loss anemia Current Visit: Yes Status: Acute (3) Metabolic encephalopathy Current Visit: Yes Status: Acute (4) KEYONNA on CPAP Current Visit: Yes Status: Acute (5) Diabetes Current Visit: Yes Status: Chronic Qualifiers: Diabetes mellitus type: type 2 Diabetes mellitus complication status: with hyperglycemia Diabetes mellitus termite technician insulin use: with termite technician use Qualified Code(s): E11.65 - Type 2 diabetes mellitus with hyperglycemia; Z79.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 no complaint. no N/V/C/D. looks somewhat tired. PT/OT notes reviewed. Objective - Constitutional Vitals: Vital Signs - 12hr 10/18/16 10/18/16 10/18/16 03:42 07:41 07:43 Temperature 99.0 F Pulse Rate Pulse Rate [ 87 Anterior Bilateral Throughout] Pulse Rate [ 96 H Apical] Respiratory 20 Rate Respiratory 18 Rate [Anterior Bilateral Throughout] Blood Pressure Blood Pressure 135/74 [Right Arm] O2 Sat by Pulse 91 98 Oximetry 10/18/16 10/18/16 07:53 09:39 Temperature Pulse Rate 96 H Pulse Rate [ 87 Anterior Bilateral Throughout] Pulse Rate [ Apical] Respiratory Rate Respiratory 18 Rate [Anterior Bilateral Throughout] Blood Pressure 105/53 Blood Pressure [Right Arm] O2 Sat by Pulse Oximetry General appearance: Present: no acute distress - EENT Eyes: PERRL ENT: hearing intact - Neck Neck: supple - Respiratory Respiratory effort: normal Respiratory: bilateral: diminished, negative: CTA - Breasts Breasts: deferred - Cardiovascular Rhythm: regular Heart Sounds: Present: S1 & S2 Extremities: no ischemia, pulses intact - Gastrointestinal General gastrointestinal: Present: soft, non-tender, normal bowel sounds, other (wound VAC intact. ) Rectal Exam: deferred - Genitourinary Female genitourinary: deferred - Integumentary Integumentary: clear, warm, dry - Musculoskeletal Musculoskeletal: generalized weakness - Neurologic Neurologic: CNII-XII intact, no focal deficits, moves all extremities - Psychiatric Psychiatric: appropriate mood/affect, intact judgment & insight - Allied health notes Allied health notes reviewed: nursing, PT, OT - Labs CBC & Chem 7: 10/18/16 05:11 10/18/16 05:11 Labs: Abnormal lab results 10/17/16 10/17/16 10/17/16 Range/Units 12: 17:12 22:31 RBC (3.65-5.03) M/mm3 Hgb (10.1-14.3) gm/dl Hct (30.3-42.9) % MCV (79-97) fl MCH (28-32) pg RDW (13.2-15.2) % Plt Count (140-440) K/mm3 Potassium (3.6-5.0) mmol/L BUN (7-17) mg/dL Creatinine (0.7-1.2) mg/dL Glucose (65-100) mg/dL POC Glucose 188 H 237 H 159 H (70-105) Phosphorus (2.5-4.5) mg/dL 10/18/16 10/18/16 10/18/16 Range/Units 05:11 05:11 05:11 RBC 3.40 L (3.65-5.03) M/mm3 Hgb 8.9 L (10.1-14.3) gm/dl Hct 26.6 L (30.3-42.9) % MCV 78 L (79-97) fl MCH 26 L (28-32) pg RDW 16.8 H (13.2-15.2) % Plt Count 460 H (140-440) K/mm3 Potassium 3.4 L (3.6-5.0) mmol/L BUN 24 H (7-17) mg/dL Creatinine 2.2 H (0.7-1.2) mg/dL Glucose 131 H (65-100) mg/dL POC Glucose (70-105) Phosphorus 5.7 H (2.5-4.5) mg/dL 10/18/16 Range/Units 05:25 RBC (3.65-5.03) M/mm3 Hgb (10.1-14.3) gm/dl Hct (30.3-42.9) % MCV (79-97) fl MCH (28-32) pg RDW (13.2-15.2) % Plt Count (140-440) K/mm3 Potassium (3.6-5.0) mmol/L BUN (7-17) mg/dL Creatinine (0.7-1.2) mg/dL Glucose (65-100) mg/dL POC Glucose 138 H (70-105) Phosphorus (2.5-4.5) mg/dL
--- NOTE | 2016-10-18 11:35 | IRU Plan of Care ---
Interdisciplinary Plan of Care - IPOC IRU INTERDISCIPLINARY PLAN: [facility] Inpatient Rehab Unit Plan of Care IRU Interdisciplinary Care Plan Start: 10/15/16 16: 03 Freq: Admission then PRN Status: Active Document 10/18/16 10:35 TH (Rec: 10/18/16 10:37 TH [id number]) Interdisciplinary Problem List Interdisciplinary Problem List Interdisciplinary Problem List Impaired Mobility Query Text:Answers will Trigger Problems Impaired Transfers and Outcomes on Worklist. IRU Interdisciplinary Care Plan Therapy Services Therapy Services Will Include: Physical Therapy Query Text:Patient will be seen for a minimum of 3 hours of daily therapy 5 out of 7 days a week. Therapy intensity may be adjusted within a 7 consecutive day period to effectively serve the individual needs of the patient. Treatment Frequency/Intensity/Duration Treatment Frequency 5 days per week Treatment Intensity 1 hour per day Treatment Duration 14 days Problem Area: Eating/Swallowing Eating/Swallowing Outcomes Eating/Swallowing Interventions Problem Area: Bathing/Grooming Bathing/Grooming Outcomes Bathing/Grooming Interventions Problem Area: Dressing Dressing Outcomes Dressing Interventions Problem Area: Mobility Mobility Outcomes Improve [place] w/ Bed Mobility Improve [place] w/ Ambulation Improve [place] w/ Stairs /Curb Improve [place] w/ Wheelchair Mobility Interventions Therapeutic Exercise Neuromuscular Re-Ed. Use of Assistive Devices Patient/Caregiver Education Bed Mobility Work Gait Training W/C Mobility Work Problem Area: Transfers Transfers Outcomes Improve [place] w/ Bed Transfers Improve [place] w/ Toilet Transfers Improve [place] w/ Tub/ Shower Transfers Improve [place] w/ Car Transfers Transfers Interventions Transfer Training Therapeutic Exercise Neuromuscular Re-Education Use of Assistive Devices Patient/Caregiver Education Problem Area: Bowel/Bladder Managment Bowel/Bladder Outcomes Bowel/Bladder Interventions Problem Area: Toileting Toileting Outcomes Toileting Interventions Problem Area: Nutrition Nutrition Outcomes Nutrition Interventions Problem Area: Comprehension Comprehension Outcomes Comprehension Interventions Problem Area: Expression Expression Outcomes Expression Interventions Problem Area: Problem Solving Problem Solving Outcomes Problem Solving Interventions Problem Area: Memory Memory Outcomes Memory Interventions Problem Area: Pain Management Pain Management Outcomes Pain Management Interventions Problem Area: Knowledge Deficits Knowledge Deficits Outcomes Knowledge Deficits Interventions Problem Area: Skin/Tissue Integrity Skin/Tissue Integrity Outcomes Skin/Tissue Integrity Interventions Problem Area: Social Interaction Social Interaction Outcomes Social Interaction Interventions Problem Area: Adjustment to Disability Adjustment to Disability Outcomes Adjustment to Disability Interventions Problem Area: Discharge Concerns Discharge Concerns Outcomes Discharge Concerns Interventions Problem Area: Community Reintegration Community Reintegration Outcomes Community Reintegration Interventions Problem Area: Home Management Home Management Outcomes Home Management Interventions Problem Area: Safety Safety Outcomes Safety Interventions Problem Area: Medication Education Medication Education Outcomes Medication Education Interventions Problem Area: Diabetes Education Diabetes Education Outcomes Diabetes Education Interventions Problem Area: Oxygenation Oxygenation Outcomes Oxygenation Interventions Problem Area: Cardiovascular Cardiovascular Outcomes Cardiovascular Interventions Physician Only Medical Prognosis and Rehabilitation Potential (Completed by Physician) This plan of care has been developed based on the findings from the pre- admission assessment, post admission physician evaluation, information gathered from the assessments from all therapy disciplines and other pertinent clinicians. The plan of care has been reviewed and discussed in collaboration with the interdisciplinary team. The plan of care will be reviewed and updated at least weekly. 65 y.o. 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 Acute care course further complicated by acute respiratory failure, acute blood loss anemia, GI Bleed. The patient remains at risk for, falls, DVT, PE, infection/sepsis, hypotension, hypoglycemia, syncope, seizures, depression, skin breakdown, worsening encephalopathy, respiratory failure, worsening anemia. Wound care to continue to follow. H/H count slowly improving. will consider a repeat CT scan if H/H drops further. cont. f/u with nephrology for GREG. Pt continues with functional deficits and is tolerating therapies well. Pt remains an appropriate candidate for IPR course.
--- NOTE | 2016-10-18 12:06 | IRU Plan of Care ---
Interdisciplinary Plan of Care - IP IRU [facility] PL[facility] Inpatient [facility] Unit Plan of Care IRU Interdisciplinary Care Plan Start: 10/15/16 16: 03 Freq: Admission then PRN Status: Active Document 10/18/16 11:49 DB (Rec: 10/18/16 11:53 DB [id number]) Interdisciplinary Problem List Interdisciplinary Problem List Interdisciplinary Problem List Impaired Eating/Swallowing Query Text:Answers will Trigger Problems Impaired Bathing/Grooming and Outcomes on Worklist. Impaired Dressing Impaired Mobility Impaired Transfers Impaired Bladder/Bowel Management Impaired Comprehension Pain Management Knowledge Deficits Impaired Skin/Tissue Integrity Impaired Safety Medications Education Diabetes Education IRU Interdisciplinary Care Plan Therapy Services Therapy Services Will Include: Physical Therapy Query Text:Patient will be seen for a Occupational Therapy minimum of 3 hours of daily therapy 5 Speech Therapy out of 7 days a week. Therapy intensity may be adjusted within a 7 consecutive day period to effectively serve the individual needs of the patient. Treatment Frequency/Intensity/Duration Treatment Frequency 5 days per week Treatment Intensity 1 hour per discipline daily Treatment Duration 14-21 days Problem Area: Eating/Swallowing Eating/Swallowing Outcomes Consume Least Restrictive Diet Eating/Swallowing Interventions Dysphagia Training Compensatory Strategies Patient/Caregiver Education Problem Area: Bathing/Grooming Bathing/Grooming Outcomes Improve [place] w/ Grooming Bathing/Grooming Interventions ADL Training Use of Assistive Devices Therapeutic Exercise Therapeutic Activity Neuromuscular Re-Education Activity Tolerance Work Patient/Caregiver Education Problem Area: Dressing Dressing Outcomes Improve [place] w/ UB Dressing Improve [place] w/ LB Dressing Dressing Interventions ADL Training Use of Assistive Devices Neuromuscular Re-Education Therapeutic Exercise Balance Work Patient/Caregiver Education Problem Area: Mobility Mobility Outcomes Improve [place] w/ Bed Mobility Improve [place] w/ Ambulation Improve [place] w/ Stairs /Curb Improve [place] w/ Wheelchair Mobility Interventions Therapeutic Exercise Neuromuscular Re-Ed. Use of Assistive Devices Patient/Caregiver Education Bed Mobility Work Gait Training W/C Mobility Work Problem Area: Transfers Transfers Outcomes Improve [place] w/ Bed Transfers Improve [place] w/ Toilet Transfers Improve [place] w/ Tub/ Shower Transfers Improve [place] w/ Car Transfers Transfers Interventions Transfer Training Therapeutic Exercise Neuromuscular Re-Education Use of Assistive Devices Patient/Caregiver Education Problem Area: Bowel/Bladder Managment Bowel/Bladder Outcomes Continent of Bowel Bowel/Bladder Interventions Medication Education Patient/Caregiver Education Problem Area: Toileting Toileting Outcomes Improve [place] w/ Toileting Toileting Interventions ADL Training Balance Work Use of Assistive Devices Patient/Caregiver Education Problem Area: Nutrition Nutrition Outcomes Nutrition Interventions Problem Area: Comprehension Comprehension Outcomes Improve Comprehension Comprehension Interventions Receptive Language Tasks Patient/Caregiver Education Problem Area: Expression Expression Outcomes Expression Interventions Problem Area: Problem Solving Problem Solving Outcomes Improve Problem Solving Problem Solving Interventions Safety Education Patient/Caregiver Education Problem Area: Memory Memory Outcomes Memory Interventions Problem Area: Pain Management Pain Management Outcomes Demonstrate/Verbalize Pain Strategies Pain Management Interventions Medication Management Positioning/Turning Patient/Caregiver Education Problem Area: Knowledge Deficits Knowledge Deficits Outcomes Verbalize Precautions Knowledge Deficits Interventions Medication Use Education Disease Management Education Health Maintainence Education Safety Education Problem Area: Skin/Tissue Integrity Skin/Tissue Integrity Outcomes Exhibit Healing of Wound/ Incision Demonstrate Understanding of Pressure Relief Demonstrate Understanding of Self Wound Care Skin/Tissue Integrity Interventions Skin/Wound Care Dressing Change Education Positioning/Turning Problem Area: Social Interaction Social Interaction Outcomes Social Interaction Interventions Problem Area: Adjustment to Disability Adjustment to Disability Outcomes Adjustment to Disability Interventions Problem Area: Discharge Concerns Discharge Concerns Outcomes Discharge w/ Necessary Equipment Have Home Health/Outpatient Services Discharge Concerns Interventions Discharge Planning Family/Caregiver Conference Family/Caregiver Training Problem Area: Community Reintegration Community Reintegration Outcomes Demonstrate Understanding of Community Resources Community Reintegration Interventions Provide Community Resources Problem Area: Home Management Home Management Outcomes Home Management Interventions Problem Area: Safety Safety Outcomes Provide Safe Environment Perform Selfcare Safely Demonstrate Good Safety w/ Transfers/Mobility Safety Interventions Identify Fall Risk [place] Pt. to Environment Reduce Environmental Hazards Re-Educate Patient/Caregiver for Safety (Post Fall Update) Problem Area: Medication Education Medication Education Outcomes Patient/Caregiver will Verbalize Understanding of Medications Medication Education Interventions Explain Administration/Side Effects/Interactions Problem Area: Diabetes Education Diabetes Education Outcomes Demonstrate Knowledge of Resources Availlable in Diabetic Ed. Folder Diabetes Education Interventions Give Pt. Diabetes Education Folder Problem Area: Oxygenation Oxygenation Outcomes Maintain Adequate Oxygenation Oxygenation Interventions Elevate Head of Bed Problem Area: Cardiovascular Cardiovascular Outcomes Cardiovascular Interventions Physician Only Medical Prognosis and Rehabilitation Patient demonstrates good Potential (Completed by Physician) rehab potential. Medical Prognosis: Good This plan of care has been developed based on the findings from the pre- admission assessment, post admission physician evaluation, information gathered from the assessments from all therapy disciplines and other pertinent clinicians. The plan of care has been reviewed and discussed in collaboration with the interdisciplinary team. The plan of care will be reviewed and updated at least weekly. 65 y.o. 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 Acute care course further complicated by acute respiratory failure, acute blood loss anemia, GI Bleed. The patient remains at risk for, falls, DVT, PE, infection/sepsis, hypotension, hypoglycemia, syncope, seizures, depression, skin breakdown, worsening encephalopathy, respiratory failure, worsening anemia. Wound care to continue to follow. H/H count slowly improving. will consider a repeat CT scan if H/H drops further. cont. f/u with nephrology for GREG. Pt continues with functional deficits and is tolerating therapies well. Pt remains an appropriate candidate for IPR course.
--- NOTE | 2016-10-18 12:23 | Progress Note ---
Assessment and Plan Assessment and plan: 1. Diabetes type 2 with insulin dependence-fair control, continue insulin regime. Continue to monitor Accu-Cheks 2. Benign hypertension-continue amlodipine. Monitor blood pressure and adjust as needed 3. Obstructive sleep apnea-nocturnal BiPAP 4. Acute renal failure-now improving, being followed by nephrology. Will defer to nephrology for further management. 5. Debility-management as per the primary team 6. DVT prophylaxis-management as per the primary team Will sign off - nothing further to add; please call as needed History Interval history: f/u DM, HTN Patient seen on the bedside, she has no complaints today Hospitalist Physical - Constitutional Vitals: Temp Pulse Resp BP Pulse Ox 99.0 F 96 H 18 105/53 98 10/18/16 03:42 10/18/16 09:39 10/18/16 07:53 10/18/16 09:39 10/18/16 07:43 General appearance: Present: no acute distress - EENT Eyes: Present: PERRL, EOM intact. Absent: scleral icterus, conjunctival injection ENT: hearing intact, clear oral mucosa, no oropharyngeal erythema, no poor dentition - Neck Neck: Present: supple, normal ROM. Absent: enlarged thyroid, masses or JVD - Respiratory Respiratory effort: normal Respiratory: negative: diminished, rales, rhonchi, wheezing - Cardiovascular Rhythm: regular Heart Sounds: Present: S1 & S2. Absent: gallop - Extremities Extremities: no ischemia, pulses intact, pulses symmetrical, No edema Peripheral Pulses: within normal limits - Abdominal General gastrointestinal: soft, non-tender, non-distended - Integumentary Integumentary: Present: clear - Psychiatric Psychiatric: appropriate mood/affect, intact judgment & insight - Neurologic Neurologic: CNII-XII intact, moves all extremities Results - Labs CBC & Chem 7: 10/18/16 05:11 10/18/16 05:11 Labs: Laboratory Last Values WBC 9.5 K/mm3 (4.5-11.0) 10/18/16 05:11 RBC 3.40 M/mm3 (3.65-5.03) L 10/18/16 05:11 Hgb 8.9 gm/dl (10.1-14.3) L 10/18/16 05:11 Hct 26.6 % (30.3-42.9) L 10/18/16 05:11 MCV 78 fl (79-97) L 10/18/16 05:11 MCH 26 pg (28-32) L 10/18/16 05:11 MCHC 33 % (30-34) 10/18/16 05:11 RDW 16.8 % (13.2-15.2) H 10/18/16 05:11 Plt Count 460 K/mm3 (140-440) H 10/18/16 05:11 Lymph % (Auto) 22.6 % (13.4-35.0) 10/16/16 06:18 [place] % (Auto) 7.3 % (0.0-7.3) 10/16/16 06:18 Eos % (Auto) 5.9 % (0.0-4.3) H 10/16/16 06:18 Baso % (Auto) 1.4 % (0.0-1.8) 10/16/16 06:18 Lymph # 2.5 K/mm3 (1.2-5.4) 10/16/16 06:18 [place] # 0.8 K/mm3 (0.0-0.8) 10/16/16 06:18 Eos # 0.6 K/mm3 (0.0-0.4) H 10/16/16 06:18 Baso # 0.2 K/mm3 (0.0-0.1) H 10/16/16 06:18 Seg Neutrophils % 62.8 % (40.0-70.0) 10/16/16 06:18 Seg Neutrophils # 6.9 K/mm3 (1.8-7.7) 10/16/16 06:18 Sodium 141 mmol/L (137-145) 10/18/16 05:11 Potassium 3.4 mmol/L (3.6-5.0) L 10/18/16 05:11 Chloride 99.1 mmol/L (98-107) 10/18/16 05:11 Carbon Dioxide 22 mmol/L (22-30) 10/18/16 05:11 Anion Gap 23 mmol/L 10/18/16 05:11 BUN 24 mg/dL (7-17) H 10/18/16 05:11 Creatinine 2.2 mg/dL (0.7-1.2) H 10/18/16 05:11 Estimated GFR 22 ml/min 10/18/16 05:11 BUN/Creatinine Ratio 10.90 % 10/18/16 05:11 Glucose 131 mg/dL (65-100) H 10/18/16 05:11 POC Glucose 264 (70-105) H 10/18/16 12:06 Calcium 8.8 mg/dL (8.4-10.2) 10/18/16 05:11 Phosphorus 5.7 mg/dL (2.5-4.5) H 10/18/16 05:11 Magnesium 1.7 mg/dL (1.7-2.3) 10/18/16 05:11 Total Bilirubin 0.3 mg/dL (0.1-1.2) 10/16/16 06:18 AST 15 units/L (5-40) 10/16/16 06:18 ALT 22 units/L (7-56) 10/16/16 06:18 Alkaline Phosphatase 86 units/L (35-129) 10/16/16 06:18 Total Protein 5.5 g/dL (6.3-8.2) L 10/16/16 06:18 Albumin 2.5 g/dL (3.9-5) L 10/16/16 06:18 Albumin/Globulin Ratio 0.8 % 10/16/16 06:18 Prealbumin 0.200 g/L (0.200-0.400) 10/16/16 06:18
[2016-10-19 08:37] LABS: Basophils % (Auto) 1.6 % (0.0-1.8); Eosinophils % (Auto) 8.6 % (0.0-4.3); Hematocrit 26.1 % (30.3-42.9); Hemoglobin 8.7 gm/dl (10.1-14.3); Mean Corpuscular HGB Conc 33 % (30-34); Mean Corpuscular Hemoglobin 26 pg (28-32); Mean Corpuscular Volume 78 fl (79-97); Platelet Count 452 K/mm3 (140-440); Red Blood Count 3.33 M/mm3 (3.65-5.03); Red Cell Distribution Width 17.2 % (13.2-15.2); White Blood Count 9.9 K/mm3 (4.5-11.0)
--- NOTE | 2016-10-19 09:51 | Progress Note ---
Assessment and Plan 65 y.o. 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 Acute care course further complicated by acute respiratory failure, acute blood loss anemia, GI Bleed. hospitalist f/u appreciated. - Critical illness myopathy- cont. PT/OT to address balance, strengthening, functional independence with self cares and mobility - metabolic encephalopathy- improving. cont. Speech - acute respiratory failure- pt is currently on continuous oxygen, which she is not on chronically; will wean as tolerated; continue nebs, will add incentive spirometer. still has some SOB on PT/OT. will work on weaning off oxygen. - KEYONNA- continue CPAP at night - HTN- continue Norvasc - DM- stable; continue ADA diet; SSI; Levemir - acute renal failure- Nephrology f/u appreciated. Cr. 2.2 -acute blood loss anemia- stable. Hb. 8.7. - DVT px- SCDs; TEDs; early ambulation; no A/C due to GI bleed during acute hospital course - Patient Problems (1) GREG (acute kidney injury) Current Visit: Yes Status: Acute (2) Acute blood loss anemia Current Visit: Yes Status: Acute (3) Metabolic encephalopathy Current Visit: Yes Status: Acute (4) KEYONNA on CPAP Current Visit: Yes Status: Acute (5) Diabetes Current Visit: Yes Status: Chronic Qualifiers: Diabetes mellitus type: type 2 Diabetes mellitus complication status: with hyperglycemia Diabetes mellitus shelter insulin use: with oil heaterman use Qualified Code(s): E11.65 - Type 2 diabetes mellitus with hyperglycemia; Z79.4 - [facility] (current) use of insulin (6) HTN (hypertension) Current Visit: Yes Status: Chronic Qualifiers: Hypertension type: essential hypertension Qualified Code(s): I10 - Essential (primary) hypertension (7) Critical illness myopathy Current Visit: No Status: Acute Subjective Date of service: 10/19/16 Principal diagnosis: critical illness myopathy Interval history: Patient seen and examined today. no complaint. no N/V/C/D. observed PT session .PT/OT notes reviewed. Objective - Constitutional Vitals: Vital Signs - 12hr 10/18/16 22:00 Pulse Rate [ 96 H Left Radial] Respiratory 18 Rate O2 Sat by Pulse 95 Oximetry General appearance: Present: no acute distress - EENT Eyes: PERRL ENT: hearing intact - Respiratory Respiratory effort: normal Respiratory: bilateral: CTA - Cardiovascular Rhythm: regular Heart Sounds: Present: S1 & S2 Extremities: no ischemia, pulses intact - Gastrointestinal General gastrointestinal: Present: soft, non-tender, other (would VAC intact) - Integumentary Integumentary: clear, warm, dry - Musculoskeletal Musculoskeletal: generalized weakness - Neurologic Neurologic: CNII-XII intact, no focal deficits - Psychiatric Psychiatric: appropriate mood/affect, intact judgment & insight - Allied health notes Allied health notes reviewed: nursing, PT, OT - Labs CBC & Chem 7: 10/19/16 08:10 10/18/16 05:11 Labs: Abnormal lab results 10/18/16 10/18/16 10/18/16 Range/Units 12:06 17:30 21:36 RBC (3.65-5.03) M/mm3 Hgb (10.1-14.3) gm/dl Hct (30.3-42.9) % MCV (79-97) fl MCH (28-32) pg RDW (13.2-15.2) % Plt Count (140-440) K/mm3 [place] % (Auto) (0.0-7.3) % Eos % (Auto) (0.0-4.3) % [place] # (0.0-0.8) K/mm3 Eos # (0.0-0.4) K/mm3 Baso # (0.0-0.1) K/mm3 POC Glucose 264 H 197 H 236 H (70-105) 10/19/16 10/19/16 Range/Units 06:09 08:10 RBC 3.33 L (3.65-5.03) M/mm3 Hgb 8.7 L (10.1-14.3) gm/dl Hct 26.1 L (30.3-42.9) % MCV 78 L (79-97) fl MCH 26 L (28-32) pg RDW 17.2 H (13.2-15.2) % Plt Count 452 H (140-440) K/mm3 [place] % (Auto) 9.7 H (0.0-7.3) % Eos % (Auto) 8.6 H (0.0-4.3) % [place] # 1.0 H (0.0-0.8) K/mm3 Eos # 0.9 H (0.0-0.4) K/mm3 Baso # 0.2 H (0.0-0.1) K/mm3 POC Glucose 147 H (70-105)
--- NOTE | 2016-10-19 09:51 | Progress Note ---
Assessment and Plan - Patient Problems (1) GREG (acute kidney injury) Current Visit: Yes Status: Acute Plan to address problem: Acute Kidney Injury in the setting of Septic shock. Renal function is stable. Monitor renal function. (2) Septic shock Current Visit: No Status: Acute Plan to address problem: Improved. Lactic acidosis improved. (3) Abscess Current Visit: No Status: Acute Plan to address problem: S/p I&D. Wound vac in place. (4) Acute blood loss anemia Current Visit: Yes Status: Acute (5) Metabolic encephalopathy Current Visit: Yes Status: Acute Subjective Date of service: 10/19/16 Principal diagnosis: critical illness myopathy Interval history: Patient denies any new complaint. Objective - Vital Signs Vital signs: Vital Signs - 12hr 10/18/16 22:00 Pulse Rate [ 96 H Left Radial] Respiratory 18 Rate O2 Sat by Pulse 95 Oximetry - General Appearance General appearance: well-developed, obese, other (no distress) EENT: PERRL, mucous membranes dry, hearing intact, vision intact Neck: no JVD, no carotid bruit, supple Respiratory: Present: Clear to Ascultation Cardiology: regular, S1S2, no murmurs Gastrointestinal: normoactive bowel sounds, no tenderness, no distended, no guarding, other (wound vac noted) Integumentary: no rash, warm and dry Neurologic: no focal deficit, no asterixis, confused, disoriented, CN 3-12 intact Musculoskeletal: other (no distress) Psychiatric: cooperative - Lab 10/19/16 08:10 10/18/16 05:11 Most recent lab results Calcium 8.8 mg/dL (8.4-10.2) 10/18/16 05:11 Phosphorus 5.7 mg/dL (2.5-4.5) H 10/18/16 05:11 Magnesium 1.7 mg/dL (1.7-2.3) 10/18/16 05:11
[2016-10-19] MEDS: NORVASC PO SCH (10:42)
[2016-10-19] MEDS: VITAMIN D3 PO SCH (10:43)
[2016-10-19] MEDS: LEVEMIR SUB-Q SCH (10:44)
[2016-10-19] MEDS: PEPCID PO SCH ×2 (10:44→23:21)
[2016-10-19] MEDS: TYLENOL PO PRN (12:41)
[2016-10-20 05:13] LABS: BUN/Creatinine Ratio 10.83; Calcium 8.9 mg/dL (8.4-10.2); Chloride 100.9 mmol/L (98-107); Magnesium 1.8 mg/dL (1.7-2.3); Potassium 3.4 mmol/L (3.6-5.0)
--- NOTE | 2016-10-20 08:58 | Progress Note ---
Assessment and Plan - Patient Problems (1) GREG (acute kidney injury) Current Visit: Yes Status: Acute Plan to address problem: Acute Kidney Injury in the setting of Septic shock. Renal function is fairly stable. Increase fluid intake. Monitor renal function. (2) Septic shock Current Visit: No Status: Acute Plan to address problem: Improved. Lactic acidosis improved. (3) Abscess Current Visit: No Status: Acute Plan to address problem: S/p I&D. Wound vac in place. (4) Acute blood loss anemia Current Visit: Yes Status: Acute (5) Metabolic encephalopathy Current Visit: Yes Status: Acute Subjective Date of service: 10/20/16 Principal diagnosis: critical illness myopathy Interval history: Patient doing ok. No new complaint. Objective - Vital Signs Vital signs: Vital Signs - 12hr 10/19/16 10/19/16 10/20/16 21:00 22:00 08:40 Temperature 99.8 F H 97.8 F Pulse Rate [ 60 Left Radial] Pulse Rate [ 80 80 Right Dorsalis Pedis] Respiratory 18 18 18 Rate Blood Pressure 116/65 137/73 [Right Arm] O2 Sat by Pulse 96 96 97 Oximetry - General Appearance General appearance: well-developed, obese, other (no distress) EENT: PERRL, mucous membranes moist, hearing intact, vision intact Neck: no carotid bruit, supple Respiratory: Present: Clear to Ascultation Cardiology: regular, S1S2, no murmurs Gastrointestinal: normoactive bowel sounds, no tenderness, no distended, no guarding, other (abd wall wound vac noted) Integumentary: warm and dry Neurologic: no focal deficit, no asterixis, confused, disoriented, CN 3-12 intact Musculoskeletal: other (no edema) Psychiatric: mood/affect appropriate, cooperative - Lab 10/19/16 08:10 10/20/16 04:28 Most recent lab results Calcium 8.9 mg/dL (8.4-10.2) 10/20/16 04:28 Phosphorus 5.7 mg/dL (2.5-4.5) H 10/18/16 05:11 Magnesium 1.8 mg/dL (1.7-2.3) 10/20/16 04:28
[2016-10-20] MEDS: PEPCID PO SCH ×2 (09:09→22:50)
[2016-10-20] MEDS: NORVASC PO SCH (09:10)
[2016-10-20] MEDS: VITAMIN D3 PO SCH (09:10)
[2016-10-20] MEDS: LEVEMIR SUB-Q SCH (09:11)
--- NOTE | 2016-10-20 11:48 | Progress Note ---
Assessment and Plan 65 y.o. 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 Acute care course further complicated by acute respiratory failure, acute blood loss anemia, GI Bleed. Nephrology f/u appreciated - Critical illness myopathy- cont. PT/OT to address balance, strengthening, functional independence with self cares and mobility. st - metabolic encephalopathy- improving. cont. Speech - acute respiratory failure- pt is currently on continuous oxygen, which she is not on chronically; will wean as tolerated; continue nebs, will add incentive spirometer. still has some SOB on PT/OT. will work on weaning off oxygen. on 2 L of [place] oxygen. - KEYONNA- continue CPAP at night - HTN- continue Norvasc - DM- stable; continue ADA diet; SSI; Levemir - acute renal failure- Nephrology f/u appreciated. Cr. 2.4 -acute blood loss anemia- stable. Hb. 8.7. no anemic symptom. - DVT px- SCDs; TEDs; early ambulation; no A/C due to GI bleed during acute hospital course - hypokalemia- K 3.4 bordreline low. will watch. - Patient Problems (1) GREG (acute kidney injury) Current Visit: Yes Status: Acute (2) Acute blood loss anemia Current Visit: Yes Status: Acute (3) Metabolic encephalopathy Current Visit: Yes Status: Acute (4) KEYONNA on CPAP Current Visit: Yes Status: Acute (5) Diabetes Current Visit: Yes Status: Chronic Qualifiers: Diabetes mellitus type: type 2 Diabetes mellitus complication status: with hyperglycemia Diabetes mellitus exterminator helper termite insulin use: with exterminator helper termite use Qualified Code(s): E11.65 - Type 2 diabetes mellitus with hyperglycemia; Z79.4 - [facility] (current) use of insulin (6) HTN (hypertension) Current Visit: Yes Status: Chronic Qualifiers: Hypertension type: essential hypertension Qualified Code(s): I10 - Essential (primary) hypertension (7) Critical illness myopathy Current Visit: No Status: Acute Subjective Date of service: 10/20/16 Principal diagnosis: critical illness myopathy Interval history: Patient seen and examined today. no complaint. no N/V/C/D. feels tired.PT/OT notes reviewed. Objective - Constitutional Vitals: Vital Signs - 12hr 10/20/16 10/20/16 10/20/16 08:40 09:10 10:00 Temperature 97.8 F Pulse Rate 80 Pulse Rate [ 80 Right Dorsalis Pedis] Respiratory 18 Rate Blood Pressure 137/73 Blood Pressure 137/73 [Right Arm] O2 Sat by Pulse 97 98 Oximetry General appearance: Present: no acute distress - EENT Eyes: PERRL ENT: hearing intact - Neck Neck: supple - Respiratory Respiratory effort: normal Respiratory: bilateral: CTA - Breasts Breasts: deferred - Cardiovascular Rhythm: regular Heart Sounds: Present: S1 & S2 Extremities: no ischemia, pulses intact - Gastrointestinal General gastrointestinal: Present: soft, non-tender, non-distended, other ( wound VAC - intact) - Integumentary Integumentary: clear, warm, dry - Musculoskeletal Musculoskeletal: generalized weakness - Neurologic Neurologic: CNII-XII intact, no focal deficits - Psychiatric Psychiatric: appropriate mood/affect, intact judgment & insight - Allied health notes Allied health notes reviewed: nursing, PT, OT - Labs CBC & Chem 7: 10/19/16 08:10 10/20/16 04:28 Labs: Abnormal lab results 10/19/16 10/19/16 10/19/16 Range/Units 12:12 16:18 22:04 Potassium (3.6-5.0) mmol/L BUN (7-17) mg/dL Creatinine (0.7-1.2) mg/dL Glucose (65-100) mg/dL POC Glucose 280 H 185 H 177 H (70-105) 10/20/16 10/20/16 Range/Units 04:28 06:50 Potassium 3.4 L (3.6-5.0) mmol/L BUN 26 H (7-17) mg/dL Creatinine 2.4 H (0.7-1.2) mg/dL Glucose 112 H (65-100) mg/dL POC Glucose 148 H (70-105)
[2016-10-21] MEDS: NORVASC PO SCH (09:20)
[2016-10-21] MEDS: VITAMIN D3 PO SCH (09:21)
[2016-10-21] MEDS: PEPCID PO SCH ×2 (09:22→21:52)
[2016-10-21] MEDS: LEVEMIR SUB-Q SCH (09:24)
--- NOTE | 2016-10-21 10:17 | Progress Note ---
Assessment and Plan 65 y.o. 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 Acute care course further complicated by acute respiratory failure, acute blood loss anemia, GI Bleed. no acute event but still desaturated during PT/OT - Critical illness myopathy- cont. PT/OT to address balance, strengthening, functional independence with self cares and mobility. st - metabolic encephalopathy- improving. cont. Speech - acute respiratory failure- will work on weaning off O2. - KEYONNA- continue CPAP at night - HTN- continue Norvasc - DM- stable; continue ADA diet; SSI; Levemir - acute renal failure- Nephrology f/u appreciated. Cr. 2.4 -acute blood loss anemia- stable. Hb. 8.7. no anemic symptom. will f/u CBC - DVT px- SCDs; TEDs; early ambulation; no A/C due to GI bleed during acute hospital course - hypokalemia- K 3.4 bordreline low. f/u BMP - Patient Problems (1) GREG (acute kidney injury) Current Visit: Yes Status: Acute (2) Acute blood loss anemia Current Visit: Yes Status: Acute (3) Metabolic encephalopathy Current Visit: Yes Status: Acute (4) KEYONNA on CPAP Current Visit: Yes Status: Acute (5) Diabetes Current Visit: Yes Status: Chronic Qualifiers: Diabetes mellitus type: type 2 Diabetes mellitus complication status: with hyperglycemia Diabetes mellitus [facility] insulin use: with moth exterminator use Qualified Code(s): E11.65 - Type 2 diabetes mellitus with hyperglycemia; Z79.4 - rat exterminator (current) use of insulin (6) HTN (hypertension) Current Visit: Yes Status: Chronic Qualifiers: Hypertension type: essential hypertension Qualified Code(s): I10 - Essential (primary) hypertension (7) Critical illness myopathy Current Visit: No Status: Acute Subjective Date of service: 10/21/16 Principal diagnosis: critical illness myopathy Interval history: Patient seen and examined today. no complaint. no N/V/C/D. PT/OT notes reviewed. still desaturated on PT/OT. Objective - Constitutional Vitals: Vital Signs - 12hr 10/20/16 10/21/16 10/21/16 23:00 08:00 09:08 Temperature 98.7 F Pulse Rate Pulse Rate [ 79 Apical] Pulse Rate [ 86 Right Brachial] Pulse Rate [ 78 Right Radial] Respiratory 18 20 Rate Blood Pressure Blood Pressure 131/84 [Right Arm] O2 Sat by Pulse 96 97 96 Oximetry 10/21/16 09:20 Temperature Pulse Rate 86 Pulse Rate [ Apical] Pulse Rate [ Right Brachial] Pulse Rate [ Right Radial] Respiratory Rate Blood Pressure 131/84 Blood Pressure [Right Arm] O2 Sat by Pulse Oximetry General appearance: Present: no acute distress - EENT Eyes: PERRL ENT: hearing intact - Neck Neck: supple - Respiratory Respiratory effort: normal Respiratory: bilateral: CTA, negative: rales, rhonchi, wheezing - Breasts Breasts: deferred - Cardiovascular Rhythm: regular Heart Sounds: Present: S1 & S2 Extremities: no ischemia, pulses intact, No edema - Gastrointestinal General gastrointestinal: Present: soft, non-tender, normal bowel sounds, other (wound VAC - intact.) - Integumentary Integumentary: clear, warm, dry - Musculoskeletal Musculoskeletal: generalized weakness - Neurologic Neurologic: CNII-XII intact, no focal deficits - Psychiatric Psychiatric: appropriate mood/affect, intact judgment & insight - Allied health notes Allied health notes reviewed: nursing, PT, OT - Labs CBC & Chem 7: 10/19/16 08:10 10/20/16 04:28 Labs: Abnormal lab results 10/20/16 10/20/16 10/21/16 Range/Units 11:53 16:16 01:06 POC Glucose 247 H 138 H 115 H (70-105) 10/21/16 Range/Units 06:11 POC Glucose 150 H (70-105)
--- NOTE | 2016-10-21 10:56 | Progress Note ---
Assessment and Plan - Patient Problems (1) GREG (acute kidney injury) Current Visit: Yes Status: Acute Plan to address problem: Acute Kidney Injury in the setting of Septic shock. Renal function is fairly stable. Increase fluid intake. Monitor renal function. (2) Septic shock Current Visit: No Status: Acute Plan to address problem: Improved. Lactic acidosis improved. (3) Acute blood loss anemia Current Visit: Yes Status: Acute (4) Metabolic encephalopathy Current Visit: Yes Status: Acute (5) Abscess of abdominal wall Current Visit: Yes Status: Acute Plan to address problem: S/p I&D. Subjective Date of service: 10/21/16 Principal diagnosis: critical illness myopathy Interval history: No new complaint. Objective - Vital Signs Vital signs: Vital Signs - 12hr 10/20/16 10/21/16 10/21/16 23:00 08:00 09:08 Temperature 98.7 F Pulse Rate Pulse Rate [ 79 Apical] Pulse Rate [ 86 Right Brachial] Pulse Rate [ 78 Right Radial] Respiratory 18 20 Rate Blood Pressure Blood Pressure 131/84 [Right Arm] O2 Sat by Pulse 96 97 96 Oximetry 10/21/16 09:20 Temperature Pulse Rate 86 Pulse Rate [ Apical] Pulse Rate [ Right Brachial] Pulse Rate [ Right Radial] Respiratory Rate Blood Pressure 131/84 Blood Pressure [Right Arm] O2 Sat by Pulse Oximetry - General Appearance General appearance: well-developed, obese, other (no distress) EENT: PERRL, hearing intact, vision intact Neck: no JVD, supple Respiratory: Present: Clear to Ascultation Cardiology: regular, S1S2, no murmurs Gastrointestinal: normoactive bowel sounds Integumentary: no rash Neurologic: no focal deficit, disoriented, CN 3-12 intact Musculoskeletal: other (no edema) Psychiatric: cooperative - Lab 10/19/16 08:10 10/20/16 04:28 Most recent lab results Calcium 8.9 mg/dL (8.4-10.2) 10/20/16 04:28 Phosphorus 5.7 mg/dL (2.5-4.5) H 10/18/16 05:11 Magnesium 1.8 mg/dL (1.7-2.3) 10/20/16 04:28
[2016-10-22 05:14] LABS: Hemoglobin 8.8 gm/dl (10.1-14.3); Mean Corpuscular HGB Conc 34 % (30-34); Mean Corpuscular Hemoglobin 27 pg (28-32); Mean Corpuscular Volume 79 fl (79-97); Platelet Count 414 K/mm3 (140-440); Red Blood Count 3.28 M/mm3 (3.65-5.03); White Blood Count 8.8 K/mm3 (4.5-11.0)
[2016-10-22 05:36] LABS: BUN/Creatinine Ratio 13.5; Calcium 8.8 mg/dL (8.4-10.2); Chloride 99.9 mmol/L (98-107); Potassium 3.4 mmol/L (3.6-5.0)
[2016-10-22 07:45] LABS: Blastocytes % (Manual) 0 %; Diff Status Complete; Platelet Clumps Few
[2016-10-22] MEDS: NORVASC PO SCH (09:06)
[2016-10-22] MEDS: VITAMIN D3 PO SCH (09:07)
[2016-10-22] MEDS: PEPCID PO SCH ×3 (09:07→22:11)
[2016-10-22] MEDS: LEVEMIR SUB-Q SCH (09:08)
--- NOTE | 2016-10-22 09:27 | Progress Note ---
Assessment and Plan - Patient Problems (1) GREG (acute kidney injury) Current Visit: Yes Status: Acute Plan to address problem: Acute Kidney Injury in the setting of Septic shock. Creatinine is improving. Encouraged adequate fluid intake. Monitor renal function. Replete K. (2) Septic shock Current Visit: No Status: Acute Plan to address problem: Improved. Lactic acidosis improved. (3) Acute blood loss anemia Current Visit: Yes Status: Acute (4) Metabolic encephalopathy Current Visit: Yes Status: Acute (5) Abscess of abdominal wall Current Visit: Yes Status: Acute Plan to address problem: S/p I&D. Wound vac in place. Subjective Date of service: 10/22/16 Principal diagnosis: critical illness myopathy Interval history: Patient is feeling better. Objective - Vital Signs Vital signs: Vital Signs - 12hr 10/22/16 10/22/16 10/22/16 08:53 08:55 09:06 Pulse Rate 80 Pulse Rate [ 88 Anterior Bilateral Throughout] Respiratory 20 Rate [Anterior Bilateral Throughout] Blood Pressure 138/74 O2 Sat by Pulse 97 Oximetry - General Appearance General appearance: well-developed, well-nourished, obese, other (no distress) EENT: PERRL, mucous membranes moist, hearing intact, vision intact Neck: no carotid bruit, supple Respiratory: Present: Clear to Ascultation Cardiology: regular, S1S2, no murmurs Gastrointestinal: normoactive bowel sounds, no tenderness, no distended, no guarding, other (Abdominal wall wound vac and luis catheter noted) Integumentary: no rash, warm and dry Neurologic: no focal deficit, CN 3-12 intact, other (mental status is better.) Musculoskeletal: other (no edema) Psychiatric: mood/affect appropriate, cooperative - Lab 10/22/16 04:51 10/22/16 04:51 Most recent lab results Calcium 8.8 mg/dL (8.4-10.2) 10/22/16 04:51 Phosphorus 5.7 mg/dL (2.5-4.5) H 10/18/16 05:11 Magnesium 1.8 mg/dL (1.7-2.3) 10/20/16 04:28
--- NOTE | 2016-10-22 11:50 | Progress Note ---
Assessment and Plan 65 y.o. 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 Acute care course further complicated by acute respiratory failure, acute blood loss anemia, GI Bleed. no acute event c/o small CPAP mask - Critical illness myopathy- cont. PT/OT to address balance, strengthening, functional independence with self cares and mobility. st - metabolic encephalopathy- improving. cont. Speech - acute respiratory failure- weaned off O2 during day. - KEYONNA- continue CPAP at night. c/o small CPAP mask. will check with respiratory - HTN- continue Norvasc - DM- stable; continue ADA diet; SSI; Levemir - acute renal failure- Nephrology f/u appreciated. Cr. 2.0, improving -acute blood loss anemia- stable. Hb. 8.8. no anemic symptom. - DVT px- SCDs; TEDs; early ambulation; no A/C due to GI bleed during acute hospital course - hypokalemia- K 3.4 bordreline low. K-dur given by nephrology - Patient Problems (1) GREG (acute kidney injury) Current Visit: Yes Status: Acute (2) Acute blood loss anemia Current Visit: Yes Status: Acute (3) Metabolic encephalopathy Current Visit: Yes Status: Acute (4) KEYONNA on CPAP Current Visit: Yes Status: Acute (5) Diabetes Current Visit: Yes Status: Chronic Qualifiers: Diabetes mellitus type: type 2 Diabetes mellitus complication status: with hyperglycemia Diabetes mellitus jail insulin use: with jail use Qualified Code(s): E11.65 - Type 2 diabetes mellitus with hyperglycemia; Z79.4 - long-term (current) use of insulin (6) HTN (hypertension) Current Visit: Yes Status: Chronic Qualifiers: Hypertension type: essential hypertension Qualified Code(s): I10 - Essential (primary) hypertension (7) Critical illness myopathy Current Visit: No Status: Acute Subjective Date of service: 10/22/16 Principal diagnosis: critical illness myopathy Interval history: Patient seen and examined today. no complaint. no N/V/C/D. PT/OT notes reviewed. c/o small CPAP mask. Nephrology f/u appreciated. Objective - Constitutional Vitals: Vital Signs - 12hr 10/22/16 10/22/16 10/22/16 07:45 08:53 08:55 Temperature 98.2 F Pulse Rate Pulse Rate [ 88 Anterior Bilateral Throughout] Pulse Rate [ 80 Right Brachial] Respiratory 20 Rate Respiratory 20 Rate [Anterior Bilateral Throughout] Blood Pressure Blood Pressure 138/74 [Right Arm] O2 Sat by Pulse 96 97 Oximetry 10/22/16 09:06 Temperature Pulse Rate 80 Pulse Rate [ Anterior Bilateral Throughout] Pulse Rate [ Right Brachial] Respiratory Rate Respiratory Rate [Anterior Bilateral Throughout] Blood Pressure 138/74 Blood Pressure [Right Arm] O2 Sat by Pulse Oximetry General appearance: Present: no acute distress - EENT Eyes: PERRL ENT: hearing intact - Neck Neck: supple - Respiratory Respiratory effort: normal Respiratory: bilateral: CTA, negative: rales, rhonchi, wheezing - Breasts Breasts: deferred - Cardiovascular Rhythm: regular Heart Sounds: Present: S1 & S2 Extremities: no ischemia, pulses intact - Gastrointestinal General gastrointestinal: Present: soft, non-tender, other (wound VAC changed today. - intact) Rectal Exam: deferred - Genitourinary Female genitourinary: deferred - Integumentary Integumentary: clear, warm, dry - Musculoskeletal Musculoskeletal: generalized weakness - Neurologic Neurologic: CNII-XII intact, no focal deficits - Psychiatric Psychiatric: appropriate mood/affect - Allied health notes Allied health notes reviewed: nursing, PT, OT - Labs CBC & Chem 7: 10/22/16 04:51 10/22/16 04:51 Labs: Abnormal lab results 10/21/16 10/21/16 10/22/16 Range/Units 11:38 21:24 04:51 RBC 3.28 L (3.65-5.03) M/mm3 Hgb 8.8 L (10.1-14.3) gm/dl Hct 26.0 L (30.3-42.9) % MCH 27 L (28-32) pg RDW 17.0 H (13.2-15.2) % Eosinophils % (Manual) 9.0 H (0.0-4.3) % Basophils % (Manual) 2.0 H (0.0-1.8) % Eosinophils # (Manual) 0.8 H (0.0-0.4) K/mm3 Basophils # (Manual) 0.2 H (0.0-0.1) K/mm3 Potassium (3.6-5.0) mmol/L BUN (7-17) mg/dL Creatinine (0.7-1.2) mg/dL Glucose (65-100) mg/dL POC Glucose 253 H 169 H (70-105) 10/22/16 10/22/16 Range/Units 04:51 06:46 RBC (3.65-5.03) M/mm3 Hgb (10.1-14.3) gm/dl Hct (30.3-42.9) % MCH (28-32) pg RDW (13.2-15.2) % Eosinophils % (Manual) (0.0-4.3) % Basophils % (Manual) (0.0-1.8) % Eosinophils # (Manual) (0.0-0.4) K/mm3 Basophils # (Manual) (0.0-0.1) K/mm3 Potassium 3.4 L (3.6-5.0) mmol/L BUN 27 H (7-17) mg/dL Creatinine 2.0 H (0.7-1.2) mg/dL Glucose 114 H (65-100) mg/dL POC Glucose 148 H (70-105)
[2016-10-22] MEDS: K-DUR PO SCH (13:20)
[2016-10-23] MEDS: PEPCID PO SCH ×2 (09:13→21:58)
[2016-10-23] MEDS: VITAMIN D3 PO SCH (09:13)
[2016-10-23] MEDS: K-DUR PO SCH (09:13)
[2016-10-23] MEDS: NORVASC PO SCH (09:14)
[2016-10-23] MEDS: LEVEMIR SUB-Q SCH (09:21)
--- NOTE | 2016-10-23 10:59 | Progress Note ---
Assessment and Plan 65 y.o. 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 Acute care course further complicated by acute respiratory failure, acute blood loss anemia, GI Bleed. no acute event - Critical illness myopathy- cont. PT/OT to address balance, strengthening, functional independence with self cares and mobility. st - metabolic encephalopathy- improving. cont. Speech - acute respiratory failure- weaned off O2 during day. - KEYONNA- continue CPAP at night. - HTN- continue Norvasc - DM- stable; continue ADA diet; SSI; Levemir - acute renal failure- Nephrology f/u appreciated. Cr. 2.0, improving -acute blood loss anemia- stable. Hb. 8.8. no anemic symptom. - DVT px- SCDs; TEDs; early ambulation; no A/C due to GI bleed during acute hospital course - hypokalemia- K 3.4 bordreline low. K-dur given. f/u BMP - Patient Problems (1) GREG (acute kidney injury) Current Visit: Yes Status: Acute (2) Acute blood loss anemia Current Visit: Yes Status: Acute (3) Metabolic encephalopathy Current Visit: Yes Status: Acute (4) KEYONNA on CPAP Current Visit: Yes Status: Acute (5) Diabetes Current Visit: Yes Status: Chronic Qualifiers: Diabetes mellitus type: type 2 Diabetes mellitus complication status: with hyperglycemia Diabetes mellitus emt intermediate insulin use: with longterm use Qualified Code(s): E11.65 - Type 2 diabetes mellitus with hyperglycemia; Z79.4 - terminal superintendent (current) use of insulin (6) HTN (hypertension) Current Visit: Yes Status: Chronic Qualifiers: Hypertension type: essential hypertension Qualified Code(s): I10 - Essential (primary) hypertension (7) Critical illness myopathy Current Visit: No Status: Acute Subjective Date of service: 10/23/16 Principal diagnosis: critical illness myopathy Interval history: Patient seen and examined today. no complaint. no N/V/C/D. PT/OT notes reviewed. Nephrology f/u appreciated. Objective - Constitutional Vitals: Vital Signs - 12hr 10/23/16 10/23/16 10/23/16 08:00 08:40 09:14 Temperature 98.0 F Pulse Rate 84 Pulse Rate [ 84 Right Brachial] Respiratory 18 Rate Blood Pressure 126/66 Blood Pressure 126/66 [Right Arm] O2 Sat by Pulse 97 99 Oximetry General appearance: Present: no acute distress - EENT Eyes: PERRL ENT: hearing intact - Respiratory Respiratory effort: normal Respiratory: bilateral: CTA, negative: rales, rhonchi, wheezing - Cardiovascular Rhythm: regular Heart Sounds: Present: S1 & S2 Extremities: no ischemia Extremity abnormal: edema - Gastrointestinal General gastrointestinal: Present: soft, non-tender, non-distended - Musculoskeletal Musculoskeletal: generalized weakness - Neurologic Neurologic: CNII-XII intact, no focal deficits, moves all extremities - Psychiatric Psychiatric: appropriate mood/affect - Allied health notes Allied health notes reviewed: nursing, PT, OT - Labs CBC & Chem 7: 10/22/16 04:51 10/22/16 04:51 Labs: Abnormal lab results 10/22/16 10/22/16 10/23/16 Range/Units 11:35 21:38 06:25 POC Glucose 252 H 129 H 154 H (70-105)
--- NOTE | 2016-10-23 12:13 | Progress Note ---
Assessment and Plan - Patient Problems (1) GREG (acute kidney injury) Current Visit: Yes Status: Acute Plan to address problem: Acute Kidney Injury in the setting of Septic shock. Creatinine is improving. Encouraged adequate fluid intake. Monitor renal function. Replete K. (2) Septic shock Current Visit: No Status: Acute Plan to address problem: Improved. Lactic acidosis improved. (3) Acute blood loss anemia Current Visit: Yes Status: Acute (4) Metabolic encephalopathy Current Visit: Yes Status: Acute (5) Abscess of abdominal wall Current Visit: Yes Status: Acute Plan to address problem: S/p I&D. Wound vac in place. Subjective Date of service: 10/23/16 Principal diagnosis: critical illness myopathy Interval history: Patient is doing better. Objective - Vital Signs Vital signs: Vital Signs - 12hr 10/23/16 10/23/16 10/23/16 08:00 08:40 09:14 Temperature 98.0 F Pulse Rate 84 Pulse Rate [ 84 Right Brachial] Respiratory 18 Rate Blood Pressure 126/66 Blood Pressure 126/66 [Right Arm] O2 Sat by Pulse 97 99 Oximetry - General Appearance General appearance: well-developed, well-nourished, obese, other (no distress) EENT: PERRL, mucous membranes moist, hearing intact, vision intact Neck: no JVD, no carotid bruit, supple Respiratory: Present: Clear to Ascultation Cardiology: regular, S1S2, no murmurs Gastrointestinal: normoactive bowel sounds, no tenderness, no distended, no guarding, other (wound vac noted) Integumentary: no rash, warm and dry Neurologic: no focal deficit, no asterixis, alert and oriented x3, CN 3-12 intact Musculoskeletal: other (no edema) Psychiatric: mood/affect appropriate, cooperative - Lab 10/22/16 04:51 10/24/16 04:22 Most recent lab results Calcium 8.8 mg/dL (8.4-10.2) 10/22/16 04:51 Phosphorus 5.7 mg/dL (2.5-4.5) H 10/18/16 05:11 Magnesium 1.8 mg/dL (1.7-2.3) 10/20/16 04:28
[2016-10-24 04:47] LABS: Calcium 8.9 mg/dL (8.4-10.2); Chloride 103.6 mmol/L (98-107); Potassium 4.1 mmol/L (3.6-5.0)
[2016-10-24] MEDS: LEVEMIR SUB-Q SCH ×2 (07:46→09:29)
--- NOTE | 2016-10-24 08:33 | Progress Note ---
Assessment and Plan 65 y.o. 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 Acute care course further complicated by acute respiratory failure, acute blood loss anemia, GI Bleed. - Critical illness myopathy- cont. PT/OT to address balance, strengthening, functional independence with self cares and mobility. st - metabolic encephalopathy- improving. cont. Speech - acute respiratory failure- weaned off O2 during day. - KEYONNA- continue CPAP at night. - HTN- continue Norvasc - DM- stable; continue ADA diet; SSI; Levemir - acute renal failure- Nephrology f/u appreciated. Cr. 2.0, improving -acute blood loss anemia- stable. Hb. 8.8. no anemic symptom. f/u H/H tomorrow. - DVT px- SCDs; TEDs; early ambulation; no A/C due to GI bleed during acute hospital course - hypokalemia- K 3.4 bordreline low. K-dur given. f/u BMP tomorrow. - Patient Problems (1) GREG (acute kidney injury) Current Visit: Yes Status: Acute (2) Acute blood loss anemia Current Visit: Yes Status: Acute (3) Metabolic encephalopathy Current Visit: Yes Status: Acute (4) KEYONNA on CPAP Current Visit: Yes Status: Acute (5) Diabetes Current Visit: Yes Status: Chronic Qualifiers: Diabetes mellitus type: type 2 Diabetes mellitus complication status: with hyperglycemia Diabetes mellitus continuous churn buttermaker insulin use: with longterm use Qualified Code(s): E11.65 - Type 2 diabetes mellitus with hyperglycemia; Z79.4 - group home (current) use of insulin (6) HTN (hypertension) Current Visit: Yes Status: Chronic Qualifiers: Hypertension type: essential hypertension Qualified Code(s): I10 - Essential (primary) hypertension (7) Critical illness myopathy Current Visit: No Status: Acute Subjective Date of service: 10/24/16 Principal diagnosis: critical illness myopathy Interval history: Patient seen and examined today. no complaint. no N/V/C/D. PT/OT notes reviewed. Nephrology f/u appreciated. Objective - Constitutional Vitals: Vital Signs - 12hr 10/24/16 10/24/16 08:16 08:22 Temperature 97.8 F Pulse Rate [ 86 Right Dorsalis Pedis] Respiratory 20 Rate Blood Pressure 102/59 [Right Arm] O2 Sat by Pulse 96 96 Oximetry General appearance: Present: no acute distress - EENT Eyes: PERRL ENT: hearing intact - Neck Neck: supple - Respiratory Respiratory effort: normal Respiratory: bilateral: CTA - Cardiovascular Rhythm: regular Heart Sounds: Present: S1 & S2 Extremities: no ischemia - Gastrointestinal General gastrointestinal: Present: soft, non-tender, non-distended, other ( wound VAC intact.) - Genitourinary Female genitourinary: deferred - Integumentary Integumentary: clear, warm, dry - Musculoskeletal Musculoskeletal: generalized weakness - Neurologic Neurologic: CNII-XII intact, no focal deficits - Psychiatric Psychiatric: appropriate mood/affect, intact judgment & insight - Allied health notes Allied health notes reviewed: nursing, PT, OT - Labs CBC & Chem 7: 10/22/16 04:51 10/24/16 04:22 Labs: Abnormal lab results 10/23/16 10/23/16 10/24/16 Range/Units 12:06 16:42 04:22 BUN 27 H (7-17) mg/dL Creatinine 1.8 H (0.7-1.2) mg/dL Glucose 146 H (65-100) mg/dL POC Glucose 241 H 185 H (70-105) 10/24/16 Range/Units 06:15 BUN (7-17) mg/dL Creatinine (0.7-1.2) mg/dL Glucose (65-100) mg/dL POC Glucose 144 H (70-105)
[2016-10-24] MEDS: VITAMIN D3 PO SCH (09:21)
[2016-10-24] MEDS: K-DUR PO SCH (09:22)
[2016-10-24] MEDS: PEPCID PO SCH ×2 (09:22→22:20)
[2016-10-24] MEDS: NORVASC PO SCH ×2 (09:23→15:27)
--- NOTE | 2016-10-24 12:49 | Progress Note ---
Assessment and Plan - Patient Problems (1) GREG (acute kidney injury) Current Visit: Yes Status: Acute Plan to address problem: Acute Kidney Injury in the setting of Septic shock. Creatinine continues to improve. Monitor renal function. (2) Hematuria Current Visit: Yes Status: Acute Plan to address problem: Hematuria is likely secondary to indwelling Andrews. Will continue to monitor. (3) Septic shock Current Visit: No Status: Acute Plan to address problem: Improved. Lactic acidosis improved. (4) Metabolic encephalopathy Current Visit: Yes Status: Acute (5) Abscess of abdominal wall Current Visit: Yes Status: Acute Plan to address problem: S/p I&D. Subjective Date of service: 10/24/16 Principal diagnosis: critical illness myopathy Interval history: Patient is feeling better. No new symptoms. Objective - Vital Signs Vital signs: Vital Signs - 12hr 10/24/16 10/24/16 10/24/16 08:16 08:22 09:23 Temperature 97.8 F Pulse Rate 86 Pulse Rate [ 86 Right Dorsalis Pedis] Respiratory 20 Rate Blood Pressure 102/59 Blood Pressure 102/59 [Right Arm] O2 Sat by Pulse 96 96 Oximetry - General Appearance General appearance: well-developed, well-nourished, obese, other (no distress, urine is blood stained) EENT: mucous membranes moist, hearing intact, vision intact Neck: no JVD, supple Respiratory: Present: Clear to Ascultation Cardiology: regular, S1S2, no murmurs Gastrointestinal: normoactive bowel sounds, no tenderness, no distended, no guarding Integumentary: warm and dry Neurologic: no focal deficit, alert and oriented x3, CN 3-12 intact Musculoskeletal: other (no edema) Psychiatric: mood/affect appropriate, cooperative - Lab 10/22/16 04:51 10/24/16 04:22 Most recent lab results Calcium 8.9 mg/dL (8.4-10.2) 10/24/16 04:22 Phosphorus 5.7 mg/dL (2.5-4.5) H 10/18/16 05:11 Magnesium 1.8 mg/dL (1.7-2.3) 10/20/16 04:28
[2016-10-25] MEDS: NORVASC PO SCH (10:56)
[2016-10-25] MEDS: PEPCID PO SCH ×2 (10:56→22:34)
[2016-10-25] MEDS: VITAMIN D3 PO SCH (10:57)
[2016-10-25] MEDS: LEVEMIR SUB-Q SCH (10:58)
[2016-10-25] MEDS: K-DUR PO SCH (12:31)
--- NOTE | 2016-10-25 13:20 | Progress Note ---
Assessment and Plan 65 y.o. 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 Acute care course further complicated by acute respiratory failure, acute blood loss anemia, GI Bleed. - Critical illness myopathy- tolerating therapies well; functional independence is improving since admission; required sliding board for transfers and was non- ambulatory on admission - metabolic encephalopathy- likely secondary to acute renal failure and sepsis; continue DOCKWORKER; noted to be improving - acute respiratory failure- weaned off continuous oxygen - KEYONNA- CPAP at night - HTN- stable on Norvasc - DM- controlled on current regimen - acute renal failure- stable; Nephrology following - acute blood loss anemia- pending F/U labs - DVT px- SCDs; TEDs; early ambulation; no A/C due to GI bleed during acute hospital course - Patient Problems (1) Critical illness myopathy Current Visit: No Status: Acute (2) Acute renal failure Current Visit: No Status: Acute Qualifiers: Acute renal failure type: with acute tubular necrosis Qualified Code(s): N17.0 - Acute kidney failure with tubular necrosis (3) Acute blood loss anemia Current Visit: Yes Status: Acute (4) HTN (hypertension) Current Visit: Yes Status: Chronic Qualifiers: Hypertension type: essential hypertension Qualified Code(s): I10 - Essential (primary) hypertension (5) Diabetes Current Visit: Yes Status: Chronic Qualifiers: Diabetes mellitus type: type 2 Diabetes mellitus complication status: with hyperglycemia Diabetes mellitus halfway insulin use: with halfway use Qualified Code(s): E11.65 - Type 2 diabetes mellitus with hyperglycemia; Z79.4 - nursing home (current) use of insulin (6) KEYONNA on CPAP Current Visit: Yes Status: Acute (7) Morbid obesity due to excess calories Current Visit: Yes Status: Acute (8) Metabolic encephalopathy Current Visit: Yes Status: Acute Subjective Date of service: 10/25/16 Principal diagnosis: critical illness myopathy Interval history: Pt seen with PT this AM; F/U IPR course, critical illness myopathy. No new complaints; observed ambulating, no loss of balance noted Objective - Constitutional Vitals: Vital Signs - 12hr 10/25/16 10/25/16 08:00 10:56 Temperature 97.9 F Pulse Rate 80 Pulse Rate [ 80 Right Dorsalis Pedis] Respiratory 18 Rate Blood Pressure 134/87 Blood Pressure 134/87 [Right Arm] O2 Sat by Pulse 97 Oximetry General appearance: Present: no acute distress, obese - EENT Eyes: EOM intact ENT: hearing intact - Neck Neck: supple, normal ROM - Respiratory Respiratory effort: normal Respiratory: bilateral: CTA - Cardiovascular Rhythm: regular Heart Sounds: Present: S1 & S2 Extremities: No edema - Gastrointestinal General gastrointestinal: Present: other (wound vac in place) - Neurologic Neurologic: CNII-XII intact, moves all extremities (3/5 hip flexion; otherwise, 4/5) - Psychiatric Psychiatric: appropriate mood/affect, cooperative - Allied health notes Allied health notes reviewed: PT (modA for transfers; Tramaine for gait up to 50 feet), ST (improving memory and problem solving), OT (s/u to maxA for ADLs) - Labs CBC & Chem 7: 10/22/16 04:51 10/24/16 04:22 Labs: Abnormal lab results 10/24/16 10/24/16 10/25/16 Range/Units 16:48 21:24 05:21 POC Glucose 115 H 127 H 130 H (70-105) 10/25/16 Range/Units 11:51 POC Glucose 245 H (70-105)
--- NOTE | 2016-10-25 14:00 | Progress Note ---
Assessment and Plan - Patient Problems (1) GREG (acute kidney injury) Current Visit: Yes Status: Acute Plan to address problem: Acute Kidney Injury in the setting of Septic shock. Creatinine continues to improve. Monitor renal function. (2) Hematuria Current Visit: Yes Status: Acute Plan to address problem: Urine is clear. Luis needs to be removed soon. (3) Septic shock Current Visit: No Status: Acute (4) Metabolic encephalopathy Current Visit: Yes Status: Acute (5) Abscess of abdominal wall Current Visit: Yes Status: Acute Subjective Date of service: 10/25/16 Principal diagnosis: critical illness myopathy Interval history: No new symptom. Objective - Vital Signs Vital signs: Vital Signs - 12hr 10/25/16 10/25/16 08:00 10:56 Temperature 97.9 F Pulse Rate 80 Pulse Rate [ 80 Right Dorsalis Pedis] Respiratory 18 Rate Blood Pressure 134/87 Blood Pressure 134/87 [Right Arm] O2 Sat by Pulse 97 Oximetry - General Appearance General appearance: well-developed, well-nourished, obese, other (no distress, urine is clear) EENT: PERRL, mucous membranes moist, hearing intact, vision intact Neck: no JVD, supple Respiratory: Present: Clear to Ascultation Cardiology: regular, S1S2, no murmurs Gastrointestinal: normoactive bowel sounds, no tenderness, no distended, no guarding, other (luis catheter) Integumentary: warm and dry Neurologic: no focal deficit, no asterixis, alert and oriented x3, CN 3-12 intact Musculoskeletal: other (no edema) Psychiatric: mood/affect appropriate, cooperative - Lab 10/22/16 04:51 10/24/16 04:22 Most recent lab results Calcium 8.9 mg/dL (8.4-10.2) 10/24/16 04:22 Phosphorus 5.7 mg/dL (2.5-4.5) H 10/18/16 05:11 Magnesium 1.8 mg/dL (1.7-2.3) 10/20/16 04:28
[2016-10-26 05:09] LABS: BUN/Creatinine Ratio 16.5; Calcium 9.1 mg/dL (8.4-10.2); Chloride 101.4 mmol/L (98-107); Potassium 4.7 mmol/L (3.6-5.0)
[2016-10-26] MEDS: K-DUR PO SCH (09:09)
[2016-10-26] MEDS: PEPCID PO SCH ×2 (09:09→23:05)
[2016-10-26] MEDS: NORVASC PO SCH (09:10)
[2016-10-26] MEDS: VITAMIN D3 PO SCH (09:10)
[2016-10-26] MEDS: LEVEMIR SUB-Q SCH (09:11)
--- NOTE | 2016-10-26 15:12 | Progress Note ---
Assessment and Plan - Patient Problems (1) GREG (acute kidney injury) Current Visit: Yes Status: Acute Plan to address problem: Acute Kidney Injury in the setting of Septic shock. Slight increase in creatinine since yesterday. Monitor renal function. Andrews catheter can be removed after bladder training. (2) Hematuria Current Visit: Yes Status: Acute Plan to address problem: Resolved. (3) Septic shock Current Visit: No Status: Acute (4) Metabolic encephalopathy Current Visit: Yes Status: Acute (5) Abscess of abdominal wall Current Visit: Yes Status: Acute Plan to address problem: S/p I&D and wound vac. Subjective Date of service: 10/26/16 Principal diagnosis: critical illness myopathy Interval history: Patient is overall doing better. Objective - Vital Signs Vital signs: Vital Signs - 12hr 10/26/16 10/26/16 10/26/16 09:10 09:39 10:00 Temperature 98 F Pulse Rate 83 Pulse Rate [ 83 Right Brachial] Pulse Rate [ 83 Right Dorsalis Pedis] Respiratory 20 20 Rate Blood Pressure 133/89 Blood Pressure 133/89 [Right Arm] O2 Sat by Pulse 96 96 Oximetry 10/26/16 14:45 Temperature 98.1 F Pulse Rate Pulse Rate [ Right Brachial] Pulse Rate [ Right Dorsalis Pedis] Respiratory Rate Blood Pressure Blood Pressure [Right Arm] O2 Sat by Pulse Oximetry - General Appearance General appearance: well-developed, well-nourished, obese, other (no distress) EENT: PERRL, mucous membranes moist, hearing intact, vision intact Neck: no carotid bruit, supple Respiratory: Present: Clear to Ascultation Cardiology: regular, S1S2, no murmurs Gastrointestinal: normoactive bowel sounds, no distended, no masses, other ( wound vac noted) Integumentary: no rash, warm and dry Neurologic: no focal deficit, no asterixis, alert and oriented x3, CN 3-12 intact Musculoskeletal: other (no edema) Psychiatric: mood/affect appropriate, cooperative - Lab 10/22/16 04:51 10/26/16 04:36 Most recent lab results Calcium 9.1 mg/dL (8.4-10.2) 10/26/16 04:36 Phosphorus 5.7 mg/dL (2.5-4.5) H 10/18/16 05:11 Magnesium 1.8 mg/dL (1.7-2.3) 10/20/16 04:28
--- NOTE | 2016-10-26 15:17 | Progress Note ---
Assessment and Plan 65 y.o. 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 Acute care course further complicated by acute respiratory failure, acute blood loss anemia, GI Bleed. - Critical illness myopathy- improving BLE proximal weakness; increasing gait distance - metabolic encephalopathy- likely secondary to acute renal failure and sepsis; much improved; d/c'd from GEAR TESTER on today - KEYONNA- CPAP at night - HTN/DM- controlled on current regimen - acute renal failure- stable; case discussed with Nephrology, will not require any HD - acute blood loss anemia- recheck in AM - DVT px- SCDs; TEDs; early ambulation; no A/C due to GI bleed during acute hospital course - Patient Problems (1) Critical illness myopathy Current Visit: No Status: Acute (2) Acute renal failure Current Visit: No Status: Acute Qualifiers: Acute renal failure type: with acute tubular necrosis Qualified Code(s): N17.0 - Acute kidney failure with tubular necrosis (3) Acute blood loss anemia Current Visit: Yes Status: Acute (4) HTN (hypertension) Current Visit: Yes Status: Chronic Qualifiers: Hypertension type: essential hypertension Qualified Code(s): I10 - Essential (primary) hypertension (5) Diabetes Current Visit: Yes Status: Chronic Qualifiers: Diabetes mellitus type: type 2 Diabetes mellitus complication status: with hyperglycemia Diabetes mellitus long term care social worker insulin use: with half-way use Qualified Code(s): E11.65 - Type 2 diabetes mellitus with hyperglycemia; Z79.4 - custodial (current) use of insulin (6) KEYONNA on CPAP Current Visit: Yes Status: Acute (7) Morbid obesity due to excess calories Current Visit: Yes Status: Acute (8) Bowel incontinence Current Visit: Yes Status: Acute Subjective Date of service: 10/26/16 Principal diagnosis: critical illness myopathy Interval history: Pt seen in room this afternoon; F/U IPR course, critical illness myopathy. Pt reports bowel incontinence, new since admission. Last stool cultures noted on 10/08- stool WBC and CDiff both negative; also on 10/12- negative for salmonella , shigella, E. Coli, or Campylobacter. Will repeat stool for CDiff; will also d /c glucerna Objective - Constitutional Vitals: Vital Signs - 12hr 10/26/16 10/26/16 10/26/16 09:10 09:39 10:00 Temperature 98 F Pulse Rate 83 Pulse Rate [ 83 Right Brachial] Pulse Rate [ 83 Right Dorsalis Pedis] Respiratory 20 20 Rate Blood Pressure 133/89 Blood Pressure 133/89 [Right Arm] O2 Sat by Pulse 96 96 Oximetry 10/26/16 14:45 Temperature 98.1 F Pulse Rate Pulse Rate [ Right Brachial] Pulse Rate [ Right Dorsalis Pedis] Respiratory Rate Blood Pressure Blood Pressure [Right Arm] O2 Sat by Pulse Oximetry General appearance: Present: no acute distress, obese - EENT Eyes: EOM intact ENT: hearing intact - Neck Neck: supple, normal ROM - Respiratory Respiratory effort: normal Extremities: No edema - Gastrointestinal General gastrointestinal: Present: other (wound vac to abdomen) - Neurologic Neurologic: CNII-XII intact, moves all extremities (improving BLE proximal weakness) - Psychiatric Psychiatric: appropriate mood/affect, cooperative - Allied health notes Allied health notes reviewed: PT (Tramaine/CGA up to 130 feet with RW; Tramaine for transfers), ST (much improved memory and problem solving, now Christina; to be d/c'd from GEAR TESTER), OT (Tramaine for transfers; SBA for standing balance) - Labs CBC & Chem 7: 10/22/16 04:51 10/26/16 04:36 Labs: Abnormal lab results 10/25/16 10/25/16 10/26/16 Range/Units 16:52 21:07 04:36 BUN 33 H (7-17) mg/dL Creatinine 2.0 H (0.7-1.2) mg/dL Glucose 151 H (65-100) mg/dL POC Glucose 142 H 184 H (70-105) 10/26/16 Range/Units 07:01 BUN (7-17) mg/dL Creatinine (0.7-1.2) mg/dL Glucose (65-100) mg/dL POC Glucose 169 H (70-105)
--- NOTE | 2016-10-27 08:42 | Progress Note ---
Assessment and Plan - Patient Problems (1) GREG (acute kidney injury) Current Visit: Yes Status: Acute Plan to address problem: Acute Kidney Injury in the setting of Septic shock. The fluctuation in the Creatinine is likely related to fluid intake. Patient was encouraged to drink adequate fluids. Monitor renal function. Andrews catheter has been removed. (2) Hematuria Current Visit: Yes Status: Acute Plan to address problem: Resolved. (3) Septic shock Current Visit: No Status: Acute (4) Metabolic encephalopathy Current Visit: Yes Status: Acute (5) Abscess of abdominal wall Current Visit: Yes Status: Acute Plan to address problem: S/p I&D. Wound vac in place. Subjective Date of service: 10/27/16 Principal diagnosis: critical illness myopathy Interval history: No new symptoms. Objective - General Appearance General appearance: well-developed, well-nourished, obese, other (no distress) EENT: PERRL, mucous membranes moist, hearing intact, vision intact Neck: no JVD, no carotid bruit, supple Respiratory: Present: Clear to Ascultation Cardiology: regular, S1S2, no murmurs Gastrointestinal: normoactive bowel sounds, no tenderness, no distended, no guarding, other (wound vac noted) Integumentary: no rash, warm and dry Neurologic: no focal deficit, no asterixis, alert and oriented x3, CN 3-12 intact Musculoskeletal: other (no edema) Psychiatric: mood/affect appropriate, cooperative - Lab 10/27/16 09:29 10/27/16 09:29 Most recent lab results Calcium 9.1 mg/dL (8.4-10.2) 10/26/16 04:36 Phosphorus 5.7 mg/dL (2.5-4.5) H 10/18/16 05:11 Magnesium 1.8 mg/dL (1.7-2.3) 10/20/16 04:28
[2016-10-27 09:44] LABS: Hematocrit 31.4 % (30.3-42.9); Hemoglobin 10.1 gm/dl (10.1-14.3); Mean Corpuscular HGB Conc 32 % (30-34); Mean Corpuscular Volume 80 fl (79-97); Platelet Count 688 K/mm3 (140-440); Red Blood Count 3.91 M/mm3 (3.65-5.03); White Blood Count 12.3 K/mm3 (4.5-11.0)
[2016-10-27] MEDS: NORVASC PO SCH (09:47)
[2016-10-27] MEDS: K-DUR PO SCH (09:48)
[2016-10-27] MEDS: VITAMIN D3 PO SCH (09:48)
[2016-10-27] MEDS: PEPCID PO SCH ×2 (09:49→22:00)
[2016-10-27] MEDS: LEVEMIR SUB-Q SCH (09:50)
[2016-10-27 09:57] LABS: BUN/Creatinine Ratio 13.18; Calcium 9.4 mg/dL (8.4-10.2); Chloride 99.3 mmol/L (98-107)
[2016-10-27 10:00] LABS: Mean Corpuscular Hemoglobin 26 pg (28-32)
--- NOTE | 2016-10-27 13:20 | Progress Note ---
Assessment and Plan 65 y.o. 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 Acute care course further complicated by acute respiratory failure, acute blood loss anemia, GI Bleed. - Critical illness myopathy- improving BLE proximal weakness - gait dysfunction- remains Tramaine-CGA for gait and transfers; improved gait distance, now ambulating up to 130 feet with RW - KEYONNA- CPAP at night - HTN/DM- stable - acute renal failure- remains stable; Nephrology continues to follow - luis d/c'd on today, follow for urination post removal; check UA, C&S for infection with noted leukocytosis; afebrile - acute blood loss anemia- resolved - bowel incontinence- timed toileting - DVT px- SCDs; TEDs; early ambulation; no A/C due to GI bleed during acute hospital course - Patient Problems (1) Critical illness myopathy Current Visit: No Status: Acute (2) Acute renal failure Current Visit: No Status: Acute Qualifiers: Acute renal failure type: with acute tubular necrosis Qualified Code(s): N17.0 - Acute kidney failure with tubular necrosis (3) HTN (hypertension) Current Visit: Yes Status: Chronic Qualifiers: Hypertension type: essential hypertension Qualified Code(s): I10 - Essential (primary) hypertension (4) Diabetes Current Visit: Yes Status: Chronic Qualifiers: Diabetes mellitus type: type 2 Diabetes mellitus complication status: with hyperglycemia Diabetes mellitus termite exterminator insulin use: with termite exterminator use Qualified Code(s): E11.65 - Type 2 diabetes mellitus with hyperglycemia; Z79.4 - watermaster (current) use of insulin (5) KEYONNA on CPAP Current Visit: Yes Status: Acute (6) Morbid obesity due to excess calories Current Visit: Yes Status: Acute (7) Bowel incontinence Current Visit: Yes Status: Acute Subjective Date of service: 10/27/16 Principal diagnosis: critical illness myopathy Interval history: Pt seen in room this AM; F/U IPR course, critical illness myopathy. Luis removed on today; CDiff negative. No new complaints per patient Objective - Constitutional Vitals: Vital Signs - 12hr 10/27/16 10/27/16 08:30 09:47 Temperature 98.8 F Pulse Rate 80 Pulse Rate [ 80 Right Dorsalis Pedis] Respiratory 18 Rate Blood Pressure 128/74 Blood Pressure 128/74 [Right Arm] O2 Sat by Pulse 96 Oximetry General appearance: Present: no acute distress, obese - EENT Eyes: EOM intact ENT: hearing intact - Neck Neck: supple, normal ROM - Respiratory Respiratory effort: normal Extremities: No edema - Gastrointestinal General gastrointestinal: Present: soft, other (+wound vac) - Neurologic Neurologic: CNII-XII intact, moves all extremities - Psychiatric Psychiatric: appropriate mood/affect, cooperative - Allied health notes Allied health notes reviewed: PT (Tramaine-CGA for tranfers and gait) - Labs CBC & Chem 7: 10/27/16 09:29 10/27/16 09:29 Labs: Abnormal lab results 10/26/16 10/26/16 10/26/16 Range/Units 11:05 17:05 21:36 WBC (4.5-11.0) K/mm3 MCH (28-32) pg RDW (13.2-15.2) % Plt Count (140-440) K/mm3 Carbon Dioxide (22-30) mmol/L BUN (7-17) mg/dL Creatinine (0.7-1.2) mg/dL Glucose (65-100) mg/dL POC Glucose 288 H 149 H 134 H (70-105) 10/27/16 10/27/16 10/27/16 Range/Units 06:32 09:29 09:29 WBC 12.3 H (4.5-11.0) K/mm3 MCH 26 L (28-32) pg RDW 17.0 H (13.2-15.2) % Plt Count 688 H (140-440) K/mm3 Carbon Dioxide 20 L (22-30) mmol/L BUN 29 H (7-17) mg/dL Creatinine 2.2 H (0.7-1.2) mg/dL Glucose 231 H (65-100) mg/dL POC Glucose 160 H (70-105) 10/27/16 Range/Units 11:58 WBC (4.5-11.0) K/mm3 MCH (28-32) pg RDW (13.2-15.2) % Plt Count (140-440) K/mm3 Carbon Dioxide (22-30) mmol/L BUN (7-17) mg/dL Creatinine (0.7-1.2) mg/dL Glucose (65-100) mg/dL POC Glucose 161 H (70-105)
[2016-10-28 04:58] LABS: BUN/Creatinine Ratio 13.47
[2016-10-28 04:59] LABS: Chloride 103.1 mmol/L (98-107); Potassium 4.5 mmol/L (3.6-5.0)
--- NOTE | 2016-10-28 08:09 | Progress Note ---
Assessment and Plan - Patient Problems (1) GREG (acute kidney injury) Current Visit: Yes Status: Acute Plan to address problem: Acute Kidney Injury in the setting of Septic shock. Creatinine continue to increase gradually. Patient was encouraged to drink adequate fluids. Monitor renal function. (2) Hematuria Current Visit: Yes Status: Acute Plan to address problem: Resolved. (3) Septic shock Current Visit: No Status: Acute Plan to address problem: Improved. Lactic acidosis improved. (4) Metabolic encephalopathy Current Visit: Yes Status: Acute (5) Abscess of abdominal wall Current Visit: Yes Status: Acute Plan to address problem: S/p I&D. Wound vac in place. Subjective Date of service: 10/28/16 Principal diagnosis: critical illness myopathy Interval history: No new complaint. Objective - Vital Signs Vital signs: Vital Signs - 12hr 10/27/16 10/27/16 10/27/16 20:44 21:00 23:00 Temperature 98.1 F Pulse Rate [ 86 Right Brachial] Respiratory 20 Rate Respiratory 18 Rate [Right Knee] Blood Pressure 115/71 [Right Arm] O2 Sat by Pulse 96 96 Oximetry - General Appearance General appearance: well-developed, well-nourished, obese, other (no distress) EENT: PERRL, mucous membranes moist, hearing intact, vision intact Neck: no JVD, no carotid bruit, supple Respiratory: Present: Clear to Ascultation Cardiology: regular, S1S2, no murmurs Gastrointestinal: normoactive bowel sounds, no tenderness, no distended, no guarding, other (wound vac noted) Integumentary: no rash, warm and dry Neurologic: no focal deficit, no asterixis, alert and oriented x3, CN 3-12 intact Musculoskeletal: other (no edema) Psychiatric: mood/affect appropriate, cooperative - Lab 10/27/16 09:29 10/28/16 04:13 Most recent lab results Calcium 9.0 mg/dL (8.4-10.2) 10/28/16 04:13 Phosphorus 5.7 mg/dL (2.5-4.5) H 10/18/16 05:11 Magnesium 1.8 mg/dL (1.7-2.3) 10/20/16 04:28
[2016-10-28] MEDS: K-DUR PO SCH (08:53)
[2016-10-28] MEDS: VITAMIN D3 PO SCH (08:53)
[2016-10-28] MEDS: NORVASC PO SCH (08:54)
[2016-10-28] MEDS: PEPCID PO SCH ×2 (08:54→21:13)
[2016-10-28] MEDS: TYLENOL PO PRN (09:31)
[2016-10-28] MEDS: LEVEMIR SUB-Q SCH (09:33)
--- NOTE | 2016-10-28 13:42 | Progress Note ---
Assessment and Plan 65 y.o. 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 Acute care course further complicated by acute respiratory failure, acute blood loss anemia, GI Bleed. - Critical illness myopathy- improving BLE proximal weakness; continue aggressive therapies - gait dysfunction- Tramaine-CGA for transfers, CGA for gait - KEYONNA- CPAP at night - HTN/DM- stable - acute renal failure- remains stable; Nephrology continues to follow; encourage po fluids - F/U UA, C&S for infection with noted leukocytosis; afebrile - bowel incontinence- timed toileting - DVT px- SCDs; TEDs; early ambulation; no A/C due to GI bleed during acute hospital course - team conference held on today- pt is s/u for eating and grooming, Tramaine for remaining ADLs; CGA-Tramaine for bed/chair/WC transfers, CGA for gait with RW; supervision with wheelchair mobility. Barriers- ongoing proximal weakness, fatigue, decreased endurance, decrease balance, bowel incontinence. At this time, pt/family unable for care for at recommended time of discharge; request SNF placement. Will plan to tentatively d/c on tomorrow to facility of choice. - Patient Problems (1) Critical illness myopathy Current Visit: No Status: Acute (2) Acute renal failure Current Visit: No Status: Acute Qualifiers: Acute renal failure type: with acute tubular necrosis Qualified Code(s): N17.0 - Acute kidney failure with tubular necrosis (3) HTN (hypertension) Current Visit: Yes Status: Chronic Qualifiers: Hypertension type: essential hypertension Qualified Code(s): I10 - Essential (primary) hypertension (4) Diabetes Current Visit: Yes Status: Chronic Qualifiers: Diabetes mellitus type: type 2 Diabetes mellitus complication status: with hyperglycemia Diabetes mellitus penitentiary insulin use: with termite technician use Qualified Code(s): E11.65 - Type 2 diabetes mellitus with hyperglycemia; Z79.4 - senior living (current) use of insulin (5) KEYONNA on CPAP Current Visit: Yes Status: Acute (6) Morbid obesity due to excess calories Current Visit: Yes Status: Acute (7) Bowel incontinence Current Visit: Yes Status: Acute Subjective Date of service: 10/28/16 Principal diagnosis: critical illness myopathy Interval history: Pt seen this AM; F/U IPR course, critical illness myopathy. adequate voiding since removal luis; denies any new complaints Objective - Constitutional Vitals: Vital Signs - 12hr 10/28/16 10/28/16 08:54 08:57 Temperature 98.2 F Pulse Rate 92 H Pulse Rate [ 92 H Right Brachial] Respiratory 20 Rate Blood Pressure 112/71 Blood Pressure 112/71 [Right Arm] O2 Sat by Pulse 96 Oximetry General appearance: Present: no acute distress, obese - EENT Eyes: EOM intact ENT: hearing intact - Neck Neck: supple, normal ROM - Respiratory Respiratory effort: normal Extremities: No edema - Gastrointestinal General gastrointestinal: Present: soft, non-tender, other (+wound vac) - Neurologic Neurologic: CNII-XII intact, moves all extremities (ongoing BLE proximal weakness, however, improved) - Psychiatric Psychiatric: appropriate mood/affect, cooperative - Labs CBC & Chem 7: 10/27/16 09:29 10/28/16 04:13 Labs: Abnormal lab results 10/28/16 10/28/16 Range/Units 04:13 06:11 BUN 31 H (7-17) mg/dL Creatinine 2.3 H (0.7-1.2) mg/dL Glucose 135 H (65-100) mg/dL POC Glucose 133 H (70-105)
[2016-10-29 05:23] LABS: Basophils % (Auto) 1.4 % (0.0-1.8); Eosinophils % (Auto) 11.3 % (0.0-4.3); Hemoglobin 9.2 gm/dl (10.1-14.3); White Blood Count 10.4 K/mm3 (4.5-11.0)
[2016-10-29 05:32] LABS: Albumin/Globulin Ratio 1.1 %; BUN/Creatinine Ratio 11.15; Bilirubin,Total 0.2 mg/dL (0.1-1.2); Calcium 8.9 mg/dL (8.4-10.2); Chloride 104.3 mmol/L (98-107); Potassium 4.7 mmol/L (3.6-5.0); Total Protein 5.7 g/dL (6.3-8.2)
[2016-10-29 05:39] LABS: Hematocrit 28.1 % (30.3-42.9); Mean Corpuscular Hemoglobin 26 pg (28-32); Mean Corpuscular Volume 80 fl (79-97)
[2016-10-29 05:40] LABS: Mean Corpuscular HGB Conc 33 % (30-34); Platelet Count 555 K/mm3 (140-440); Red Cell Distribution Width 17.1 % (13.2-15.2)
--- NOTE | 2016-10-29 08:14 | Progress Note ---
Assessment and Plan - Patient Problems (1) GREG (acute kidney injury) Status: Acute Plan to address problem: Acute Kidney Injury in the setting of Septic shock. Creatinine continue to increase gradually. Patient was encouraged to drink adequate fluids. Patient is being discharged to [facility] today. F/u with me in 1-2 weeks. (2) Hematuria Status: Acute Plan to address problem: Resolved. (3) Septic shock Status: Acute Plan to address problem: Improved. Lactic acidosis improved. (4) Metabolic encephalopathy Status: Acute (5) Abscess of abdominal wall Status: Acute Plan to address problem: S/p I&D and wound vac. Subjective Date of service: 10/29/16 Principal diagnosis: critical illness myopathy Interval history: No new symptoms. Objective - General Appearance General appearance: well-developed, well-nourished, obese, other (no distress) EENT: PERRL, mucous membranes moist, hearing intact, vision intact Neck: no JVD, no carotid bruit, supple Respiratory: Present: Clear to Ascultation Cardiology: regular, S1S2, no murmurs Gastrointestinal: normoactive bowel sounds, no tenderness, no distended, no guarding Integumentary: no rash, warm and dry Neurologic: no focal deficit, no asterixis, alert and oriented x3, CN 3-12 intact Psychiatric: mood/affect appropriate, cooperative - Lab 10/29/16 04:54 10/29/16 04:54 Most recent lab results Calcium 8.9 mg/dL (8.4-10.2) 10/29/16 04:54 Phosphorus 5.7 mg/dL (2.5-4.5) H 10/18/16 05:11 Magnesium 1.8 mg/dL (1.7-2.3) 10/20/16 04:28 - Imaging Kidney/bladder ultrasound: report reviewed
[2016-10-29] MEDS: K-DUR PO SCH (08:29)
[2016-10-29] MEDS: VITAMIN D3 PO SCH (08:29)
[2016-10-29] MEDS: PEPCID PO SCH (08:29)
[2016-10-29 08:30] VITALS: BP 124/66
[2016-10-29] MEDS: NORVASC PO SCH (08:30)
[2016-10-29] MEDS: LEVEMIR SUB-Q SCH (09:16)
[2016-10-29] MEDS: TYLENOL PO PRN (11:36)
--- NOTE | 2016-10-29 11:44 | Discharge Summary ---
Providers - Providers Date of Admission: 10/15/16 15:41 Date of discharge: 10/29/16 Attending physician: JAMSHID PHILIPPE 10/15/16 16:37 Consult to Physician [CONS] Routine Consulting Provider: ADRIANA AGEE Reason For Exam: acute renal failure Place consult to:: Dr. Agee Notified:: Phone number called:: [phone] Was contact made?: Yes Time called:: 12:02 Consult to Wound/ET Nurse [CONS] Routine Reason For Exam: wound vac management Occupational Therapy Evaluate and Treat [CONS] Routine Comment: Reason For Exam: critical illness myopathy Physical Therapy Evaluation and Treat [CONS] Routine Comment: Reason For Exam: critical illness myopathy Speech Therapy Evaluation and Treat [CONS] Routine Reason For Exam: cognitive evaluation; encephalopathy 10/15/16 16:42 Consult to Dietitian/Nutrition [CONS] Routine Physician Instructions: Reason For Exam: Reason for Consult: Poor oral intake Primary care physician: CHUY CARTAGENA Hospitalization Reason for admission: Critical care myopathy Condition: Stable Hospital course: 65 y.o. morbidly obese female, with history of abdominal hernia repair in Jun 2016, who presented to [facility] with shortness of breath. Pt was found to have severe sepsis and was in acute renal failure; septic shock thought to be secondary to subcutaneous abdominal wall abscess, s/p incision and drainage on 09/30/2016. Pt required wound vac placement and course of IV ABX completed. Acute care course also significant for respiratory failure (extubated on ), acute blood loss anemia s/p 1U pRBCs, acute BRBPR x1 (resolved). Pt was evaluated by PT and noted to have significant difficulty with bed mobility; unable to transfer due to anxiety and severe proximal LE weakness, likely secondary to critical illness myopathy. Once stable, pt was thought to be an appropriate candidate for IRU to complete aggressive therapies and ongoing medical management. IPR notable for weaning off continuous oxygen; renal function is stable, did not require HD, however will continue to require close follow-up; HTN, DM, and anemia have remained stable; no episodes of BRBPR have occurred during course. Andrews catheter has been removed and pt is voiding; pt does have occasional episodes of bowel incontinence; CDiff negative. Functionally, pt has shown good improvement since admission. On initial evaluations, pt required maxA for bed mobility, unable to perform transfers standing or with sliding board, nonambulatory; s/u to totalA for ADLs; supervision for problem solving and memory. At the time of discharge, pt has improved to Tramaine for transfers, ambulating 170 feet x2 with RW at CGA; independent to Tramaine for ADLs; Christina for problem solving and memory. Barriers- proximal weakness in BLE, however improving; ongoing assistance with self cares and mobility, however, improving. At this time, pt is not safe for d/c to home alone and family is not available to provide 24 hour supervision and assist in cares; request SNF placement. Will continue with wound vac at SNF. >30 mins spent completing d/c process; med reconciliation; all questions answered with patient Disposition: DC/TX SNF W [facility] CERT - Discharge Diagnoses (1) Critical illness myopathy Status: Acute (2) Acute renal failure Status: Acute Qualifiers: Acute renal failure type: with acute tubular necrosis Qualified Code(s): N17.0 - Acute kidney failure with tubular necrosis (3) HTN (hypertension) Status: Chronic Qualifiers: Hypertension type: essential hypertension Qualified Code(s): I10 - Essential (primary) hypertension (4) Diabetes Status: Chronic Qualifiers: Diabetes mellitus type: type 2 Diabetes mellitus complication status: with hyperglycemia 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 Qualified Code(s): E11.65 - Type 2 diabetes mellitus with hyperglycemia; Z79.4 - care home (current) use of insulin (5) KEYONNA on CPAP Status: Acute (6) Morbid obesity due to excess calories Status: Acute (7) Bowel incontinence Status: Acute Core Measure Documentation - Palliative Care Palliative Care/ Comfort Measures: Not Applicable - Core Measures Any of the following diagnoses?: none Exam - Constitutional Vitals: Temp Pulse Resp BP Pulse Ox 97.6 F 82 20 124/66 97 10/29/16 08:14 10/29/16 08:30 10/29/16 08:14 10/29/16 08:30 10/29/16 08:14 General appearance: Present: no acute distress, obese - EENT Eyes: Present: EOM intact ENT: hearing intact - Neck Neck: Present: supple, normal ROM - Respiratory Respiratory effort: normal - Abdominal General gastrointestinal: Present: other (+wound vac) - Musculoskeletal Musculoskeletal: other (proximal weakness at BLE) - Psychiatric Psychiatric: appropriate mood/affect, cooperative - Neurologic Neurologic: CNII-XII intact Plan Activity: no driving until cleared by PCP, fall precautions Weight Bearing Status: Weight Bear as Tolerated Diet: renal Wound: per wound nurse instructions (continue wound vac) Special Instructions: other (encourage po intake) Follow up with: CHUY CARTAGENA JR, MD [Primary Care Provider] - 7 Days ADRIANA AGEE MD [Staff Physician] - 7 Days TAMMI CRUM MD [Staff Physician] - 7 Days
--- NOTE | 2016-10-29 14:45 | Ultrasound Report ---
Renal ultrasound: Comparison is made to the prior study of September 30, 2016. The right kidney has a length of 9.9 cm. Kidney may have mild increased echogenicity of the parenchyma. There is a focal echogenicity in the parenchyma of the superior kidney. No shadowing noted. No hydronephrosis. No renal mass. The left renal length is 10.5 cm. A small 4 mm echogenicity is identified in the superior portion of the central kidney. No hydronephrosis identified. The echo density identified on prior study is no longer seen. Imaging of the urinary bladder is unremarkable. Impression: 1. Bilateral small echodensities that are consistent with nonobstructing calculi. 2. The previously identified peripheral soft tissue appearing echodensity in the left kidney is no longer seen. 3. The parenchyma is slightly echogenic raising suspicion of medical renal disease.
== END 2016-10-29 13:29 | DRG 871 ==
LOC: 3B 15:41
PROVIDERS: ADMIT Family Medicine; ATTEND Family Medicine
DX: A41.9 Sepsis, unspecified organism (principal); G93.41 Metabolic encephalopathy; R65.21 Severe sepsis with septic shock; J96.00 Acute respiratory failure, unspecified whether with hypoxia or hypercapnia; N17.0 Acute kidney failure with tubular necrosis; G72.81 Critical illness myopathy; D62 Acute posthemorrhagic anemia; Z68.41 Body mass index [BMI] 40.0-44.9, adult; L02.211 Cutaneous abscess of abdominal wall; K62.5 Hemorrhage of anus and rectum; E87.2 Acidosis; I10 Essential (primary) hypertension; G47.33 Obstructive sleep apnea (adult) (pediatric); E66.01 Morbid (severe) obesity due to excess calories; R41.3 Other amnesia; R53.1 Weakness; F41.9 Anxiety disorder, unspecified; E11.65 Type 2 diabetes mellitus with hyperglycemia; R41.89 Other symptoms and signs involving cognitive functions and awareness; E87.6 Hypokalemia; R31.9 Hematuria, unspecified; R53.81 Other malaise; R15.9 Full incontinence of feces; Z98.890 Other specified postprocedural states; Z79.84 Long term (current) use of oral hypoglycemic drugs; Z79.899 Other long term (current) drug therapy; Z79.4 Long term (current) use of insulin; Z99.81 Dependence on supplemental oxygen; Z82.49 Family history of ischemic heart disease and other diseases of the circulatory system
CPT/HCPCS: 36415; 76770; 80048; 80053; 82962; 83735; 84100; 84134; 85007; 85025; 85027; 87493; 94640; 94760; G8987-GO; G8988-GO; J1815; J1818

== ENCOUNTER 2017-06-15 11:49 | Emergency (ER) | payer MEDICARE ==
[2017-06-15 12:04] VITALS: BP 171/102
--- NOTE | 2017-06-15 12:29 | XRay Report ---
RIGHT ANKLE RADIOGRAPHS INDICATION: Swelling to front of ankle. COMPARISON: None similar. FINDINGS: AP, lateral and oblique right ankle radiographs demonstrate intact mortise, medial malleolus and talar dome contour. Demineralized bones with mild lateral malleolar tip ossific density, presumed old/degenerative. Diffuse ankle soft tissue swelling noted, greatest anteriorly and medially. Dorsal calcaneal spur. Demineralized bones. CONCLUSION: Right ankle soft tissue swelling and few bony degenerative changes, as described. Please correlate. Thank you for the opportunity to participate in this patient's care.
[2017-06-15] MEDS ORDERED: MOTRIN PO ONE (12:49)
--- NOTE | 2017-06-15 13:55 | Emergency Department Report ---
ED General Adult HPI - General Chief complaint: Skin/Abscess/Foreign Body Stated complaint: RT ANKLE SWOLLEN Time Seen by Provider: 06/15/17 12:48 Source: patient Mode of arrival: Ambulatory Limitations: No Limitations - History of Present Illness Initial comments: 66-year-old female presents to the ED complaining about right foot swelling states symptoms started about 1 day ago. States that it is also tender to touch and painful to walk on. states that it is warm and slightly red around the ankle and foot. denies fever, cp, sob, dyspnea. states full rom of foot. -: Gradual, days(s) (2) Severity scale (0 -10): 3 Quality: aching Consistency: constant Improves with: none Worsens with: movement Associated Symptoms: denies other symptoms. denies: confusion, chest pain, cough, headaches, loss of appetite, malaise, nausea/vomiting, rash, seizure, shortness of breath, syncope, weakness - Related Data Home Medications Medication Instructions Recorded Confirmed Last Taken amLODIPine 5 mg PO QDAY 09/30/16 10/16/16 1 Day Ago Previous Rx's Medication Instructions Recorded Last Taken Type ALBUTEROL NEB's [Proventil 0.083% 2.5 mg IH Q4HRT PRN #30 nebu 10/15/16 Unknown Rx NEBS] Acetaminophen [Acetaminophen TAB] 650 mg PO Q6H PRN #30 tablet 10/15/16 Unknown Rx Famotidine [Pepcid] 20 mg PO BID #60 tablet 10/15/16 Unknown Rx Insulin Detemir [Levemir] 18 units SUB-Q DAILY #30 units 10/15/16 Unknown Rx Cholecalciferol Vit D3 [Vitamin D3] 1,000 unit PO QDAY tablet 10/29/16 Unknown Rx Insulin Regular, Human [HumuLIN R] 0 units SUB-Q ACHS units 10/29/16 Unknown Rx Potassium Chloride [K-Dur] 40 meq PO QDAY tablet 10/29/16 Unknown Rx Sulfamethoxazole/Trimethoprim 1 each PO BID #20 tablet 06/15/17 Unknown Rx [Bactrim DS TAB] traMADol [Ultram 50 MG tab] 50 mg PO Q6HR PRN #14 tablet 06/15/17 Unknown Rx Allergies Allergy/AdvReac Type Severity Reaction Status Date / Time No Known Allergies Allergy Verified 06/15/17 12:04 ED Review of Systems ROS: Stated complaint: RT ANKLE SWOLLEN Other details as noted in HPI Constitutional: denies: chills, fever Eyes: denies: eye pain, eye discharge, vision change ENT: denies: ear pain, throat pain Respiratory: denies: cough, shortness of breath, wheezing Cardiovascular: denies: chest pain, palpitations Endocrine: no symptoms reported Gastrointestinal: denies: abdominal pain, nausea, diarrhea Genitourinary: denies: urgency, dysuria, discharge Musculoskeletal: joint swelling, arthralgia. denies: back pain Skin: denies: rash, lesions Neurological: denies: headache, weakness, paresthesias Psychiatric: denies: anxiety, depression Hematological/Lymphatic: denies: easy bleeding, easy bruising ED Past Medical Hx - Past Medical History Hx Hypertension: Yes Hx Heart Attack/AMI: No Hx Congestive Heart Failure: No Hx Diabetes: Yes Hx Deep Vein Thrombosis: No Hx Pulmonary Embolism: No Hx Asthma: No Hx COPD: No Hx Tuberculosis: No Additional medical history: Hypercholesterolemia, Sepsis - Surgical History Past Surgical History?: Yes Hx Coronary Stent: No Hx Pacemaker: No Hx Internal Defibrillator: No Additional Surgical History: Herniorrhaphy - Social History Smoking Status: Never Smoker Substance Use Type: None - Medications Home Medications: Home Medications Medication Instructions Recorded Confirmed Last Taken Type amLODIPine 5 mg PO QDAY 09/30/16 10/16/16 1 Day Ago History ALBUTEROL NEB's [Proventil 0.083% 2.5 mg IH Q4HRT PRN #30 nebu 10/15/16 Unknown Rx NEBS] Acetaminophen [Acetaminophen TAB] 650 mg PO Q6H PRN #30 tablet 10/15/16 Unknown Rx Famotidine [Pepcid] 20 mg PO BID #60 tablet 10/15/16 10/16/16 Unknown Rx Insulin Detemir [Levemir] 18 units SUB-Q DAILY #30 units 10/15/16 10/16/16 Unknown Rx Cholecalciferol Vit D3 [Vitamin D3] 1,000 unit PO QDAY tablet 10/29/16 Unknown Rx Insulin Regular, Human [HumuLIN R] 0 units SUB-Q ACHS units 10/29/16 Unknown Rx Potassium Chloride [K-Dur] 40 meq PO QDAY tablet 10/29/16 Unknown Rx Sulfamethoxazole/Trimethoprim 1 each PO BID #20 tablet 06/15/17 Unknown Rx [Bactrim DS TAB] traMADol [Ultram 50 MG tab] 50 mg PO Q6HR PRN #14 tablet 06/15/17 Unknown Rx ED Physical Exam - General Limitations: No Limitations General appearance: alert, in no apparent distress - Head Head exam: Present: atraumatic, normocephalic - Eye Eye exam: Present: normal appearance - ENT ENT exam: Present: mucous membranes moist - Neck Neck exam: Present: normal inspection - Respiratory Respiratory exam: Present: normal lung sounds bilaterally. Absent: respiratory distress - Cardiovascular Cardiovascular Exam: Present: regular rate, normal rhythm. Absent: systolic murmur, diastolic murmur, rubs, gallop - GI/Abdominal GI/Abdominal exam: Present: soft, normal bowel sounds - Extremities Exam Extremities exam: Present: normal inspection - Expanded Lower Extremity Exam Right Hip exam: Present: normal inspection, full ROM Upper Leg exam: Present: normal inspection, full ROM Knee exam: Present: normal inspection, full ROM Lower Leg exam: Present: tenderness, swelling (pitting edema up to high ankle area that is about 1+. slight erythema around the leg. ). Absent: laceration, ecchymosis, deformity, crepidus, dislocation Ankle exam: Present: tenderness, swelling. Absent: abrasion, laceration, ecchymosis, deformity, crepidus, dislocation, erythema, anterior draw sign Foot/Toe exam: Present: tenderness, swelling. Absent: dislocation, erythema, amputation, puncture wound, foreign body, calcaneal tenderness - Back Exam Back exam: Present: normal inspection - Neurological Exam Neurological exam: Present: alert, oriented X3 - Psychiatric Psychiatric exam: Present: normal affect, normal mood - Skin Skin exam: Present: warm, dry, intact, normal color. Absent: rash ED Course Vital Signs 06/15/17 11:56 Temperature 99.2 F Pulse Rate 92 H Respiratory 18 Rate Blood Pressure 171/102 O2 Sat by Pulse 98 Oximetry ED Medical Decision Making - Radiology Data doppler is negative for DVT. - Medical Decision Making patient is resting comfortably at this time, VSS and doppler is negative. will start on abx to cover for cellulitis. NAD at this time. Critical care attestation.: If time is entered above; I have spent that time in minutes in the direct care of this critically ill patient, excluding procedure time. ED Disposition Clinical Impression: Pain and swelling of right lower leg, Cellulitis of right lower leg Disposition: DC-01 TO HOME OR SELFCARE Is pt being admited?: No Does the pt Need Aspirin: No Condition: Stable Instructions: Cellulitis (ED) Prescriptions: Sulfamethoxazole/Trimethoprim [Bactrim DS TAB] 1 each PO BID #20 tablet traMADol [Ultram 50 MG tab] 50 mg PO Q6HR PRN #14 tablet PRN Reason: Pain Referrals: PRIMARY CARE, [Primary Care Provider] - 3-5 Days Forms: Work/School Release Form(ED) Time of Disposition: 13:58
--- NOTE | 2017-06-17 07:18 | Vascular Lab Report ---
Right Lower Extremity Venous Duplex Study: Reason for Exam: Swelling of the right lower extremity. Comments on the Right: All veins visualized are freely compressible without evidence of internal echogenicity. Flow is spontaneous and phasic throughout. No evidence of acute or chronic thrombus is seen in any of the vessels visualized. Soft tissue changes are noted in the anterior ankle. Differential diagnoses would include hematoma, complex cyst, mass. Clinical correlation is recommended. Comments on the Left: A limited duplex study was done of the proximal veins of the left lower extremity. All veins visualized are freely compressible without evidence of internal echogenicity. Flow is spontaneous and phasic throughout. No evidence of acute or chronic thrombus is seen in any of the vessels visualized. Impression: No evidence of acute or chronic deep venous thrombosis in the right lower extremity.
== END 2017-06-15 14:05 | disposition home or self-care (01) ==
LOC: ED 11:49
DX: M25.571 Pain in right ankle and joints of right foot (principal); L03.115 Cellulitis of right lower limb; E11.9 Type 2 diabetes mellitus without complications; I10 Essential (primary) hypertension; Z79.4 Long term (current) use of insulin

== ENCOUNTER 2017-06-17 11:21 | Emergency (ER) | payer MEDICARE ==
[2017-06-17 14:44] LABS: Basophils % (Auto) 0.4 % (0.0-1.8); Eosinophils % (Auto) 0.3 % (0.0-4.3); Hematocrit 37.4 % (30.3-42.9); Hemoglobin 12.1 gm/dl (10.1-14.3); Mean Corpuscular HGB Conc 32 % (30-34); Mean Corpuscular Volume 78 fl (79-97); Platelet Count 406 K/mm3 (140-440); Red Blood Count 4.83 M/mm3 (3.65-5.03); Red Cell Distribution Width 15.1 % (13.2-15.2); White Blood Count 13.5 K/mm3 (4.5-11.0)
[2017-06-17 14:46] LABS: Mean Corpuscular Hemoglobin 25 pg (28-32)
[2017-06-17 15:03] LABS: BUN/Creatinine Ratio 19.16; Calcium 9.5 mg/dL (8.4-10.2); Chloride 92.9 mmol/L (98-107); Potassium 3.8 mmol/L (3.6-5.0)
[2017-06-17 15:31] VITALS: BP 152/89
--- NOTE | 2017-06-17 19:57 | Emergency Department Report ---
Entered by RANDI ADAIR, acting as scribe for SAHARA HAGER PA. - General Chief complaint: Skin Rash Stated complaint: LARGE RED SPOT ON RT LEG Time Seen by Provider: 06/17/17 14:29 Source: patient Mode of arrival: Ambulatory Limitations: No Limitations - History of Present Illness Initial comments: 66 year old female with PMHx of DM and HTN presents to ED for evaluation of multiple erythematous circular rashes to bilateral arms, bilateral legs, and back since this morning. Patient states was here yesterday when she got diagnosed with cellulitis to right ankle and noticed red bumps down her leg last night after taking two days of Bactrim. Patient denies SOB, diff swallowing , wheezing, facial swelling, itching, irritation, trauma/injury, fever, chills, pus/drainage, numbness, tingling to area. Patient states she does not recall ever taking bactrim prior to this week. MD complaint: rash -: Last night Tetanus Up to Date: unsure Location: back, LUE, RUE, LLE, RLE Severity: mild Severity scale (0 -10): 0 Consistency: constant Improves with: none Worsens with: medication Context: new medication, recent antibiotic Associated symptoms: denies other symptoms Treatments Prior to Arrival: antibiotic (traMAdol and bactrim) - Related Data Home Medications Medication Instructions Recorded Confirmed Last Taken amLODIPine 5 mg PO QDAY 09/30/16 10/16/16 1 Day Ago Previous Rx's Medication Instructions Recorded Last Taken Type ALBUTEROL NEB's [Proventil 0.083% 2.5 mg IH Q4HRT PRN #30 nebu 10/15/16 Unknown Rx NEBS] Acetaminophen [Acetaminophen TAB] 650 mg PO Q6H PRN #30 tablet 10/15/16 Unknown Rx Famotidine [Pepcid] 20 mg PO BID #60 tablet 10/15/16 Unknown Rx Insulin Detemir [Levemir] 18 units SUB-Q DAILY #30 units 10/15/16 Unknown Rx Cholecalciferol Vit D3 [Vitamin D3] 1,000 unit PO QDAY tablet 10/29/16 Unknown Rx Insulin Regular, Human [HumuLIN R] 0 units SUB-Q ACHS units 10/29/16 Unknown Rx Potassium Chloride [K-Dur] 40 meq PO QDAY tablet 10/29/16 Unknown Rx Sulfamethoxazole/Trimethoprim 1 each PO BID #20 tablet 06/15/17 Unknown Rx [Bactrim DS TAB] traMADol [Ultram 50 MG tab] 50 mg PO Q6HR PRN #14 tablet 06/15/17 Unknown Rx Cephalexin [Keflex] 500 mg PO Q12HR #14 cap 06/17/17 Unknown Rx Hydroxyzine HCl 25 mg PO BID #14 tablet 06/17/17 Unknown Rx Triamcinolone 0.1% [Kenalog 0.1% 1 applic TP TID #1 tube 06/17/17 Unknown Rx CREAM] Allergies Allergy/AdvReac Type Severity Reaction Status Date / Time No Known Allergies Allergy Verified 06/15/17 12:04 Abscess Boil HPI - HPI Chief Complaint: Skin Rash Stated Complaint: LARGE RED SPOT ON RT LEG Home Medications: Home Medications Medication Instructions Recorded Confirmed Last Taken amLODIPine 5 mg PO QDAY 09/30/16 10/16/16 1 Day Ago Previous Rx's Medication Instructions Recorded Last Taken Type ALBUTEROL NEB's [Proventil 0.083% 2.5 mg IH Q4HRT PRN #30 nebu 10/15/16 Unknown Rx NEBS] Acetaminophen [Acetaminophen TAB] 650 mg PO Q6H PRN #30 tablet 10/15/16 Unknown Rx Famotidine [Pepcid] 20 mg PO BID #60 tablet 10/15/16 Unknown Rx Insulin Detemir [Levemir] 18 units SUB-Q DAILY #30 units 10/15/16 Unknown Rx Cholecalciferol Vit D3 [Vitamin D3] 1,000 unit PO QDAY tablet 10/29/16 Unknown Rx Insulin Regular, Human [HumuLIN R] 0 units SUB-Q ACHS units 10/29/16 Unknown Rx Potassium Chloride [K-Dur] 40 meq PO QDAY tablet 10/29/16 Unknown Rx Sulfamethoxazole/Trimethoprim 1 each PO BID #20 tablet 06/15/17 Unknown Rx [Bactrim DS TAB] traMADol [Ultram 50 MG tab] 50 mg PO Q6HR PRN #14 tablet 06/15/17 Unknown Rx Cephalexin [Keflex] 500 mg PO Q12HR #14 cap 06/17/17 Unknown Rx Hydroxyzine HCl 25 mg PO BID #14 tablet 06/17/17 Unknown Rx Triamcinolone 0.1% [Kenalog 0.1% 1 applic TP TID #1 tube 06/17/17 Unknown Rx CREAM] Allergies/Adverse Reactions: Allergies Allergy/AdvReac Type Severity Reaction Status Date / Time No Known Allergies Allergy Verified 06/15/17 12:04 ED Review of Systems Comment: All other systems reviewed and negative Constitutional: denies: chills, fever Eyes: denies: eye pain, eye discharge, vision change ENT: denies: ear pain, throat pain Respiratory: denies: cough, shortness of breath, wheezing Cardiovascular: denies: chest pain, palpitations Endocrine: no symptoms reported Gastrointestinal: denies: abdominal pain, nausea, vomiting, diarrhea Genitourinary: denies: urgency, dysuria, discharge Musculoskeletal: denies: back pain, joint swelling, arthralgia Skin: rash Neurological: denies: headache, weakness, numbness, paresthesias Psychiatric: denies: anxiety, depression Hematological/Lymphatic: denies: easy bleeding, easy bruising ED Past Medical Hx - Past Medical History Hx Hypertension: Yes Hx Heart Attack/AMI: No Hx Congestive Heart Failure: No Hx Diabetes: Yes Hx Deep Vein Thrombosis: No Hx Pulmonary Embolism: No Hx Asthma: No Hx COPD: No Hx Tuberculosis: No Additional medical history: Hypercholesterolemia, Sepsis - Surgical History Hx Coronary Stent: No Hx Pacemaker: No Hx Internal Defibrillator: No Additional Surgical History: Hernia x 3 - Social History Smoking Status: Never Smoker Substance Use Type: None - Medications Home Medications: Home Medications Medication Instructions Recorded Confirmed Last Taken Type amLODIPine 5 mg PO QDAY 09/30/16 10/16/16 1 Day Ago History ALBUTEROL NEB's [Proventil 0.083% 2.5 mg IH Q4HRT PRN #30 nebu 10/15/16 Unknown Rx NEBS] Acetaminophen [Acetaminophen TAB] 650 mg PO Q6H PRN #30 tablet 10/15/16 Unknown Rx Famotidine [Pepcid] 20 mg PO BID #60 tablet 10/15/16 10/16/16 Unknown Rx Insulin Detemir [Levemir] 18 units SUB-Q DAILY #30 units 10/15/16 10/16/16 Unknown Rx Cholecalciferol Vit D3 [Vitamin D3] 1,000 unit PO QDAY tablet 10/29/16 Unknown Rx Insulin Regular, Human [HumuLIN R] 0 units SUB-Q ACHS units 01/06/17 Unknown Rx Potassium Chloride [K-Dur] 40 meq PO QDAY tablet 10/29/16 Unknown Rx Sulfamethoxazole/Trimethoprim 1 each PO BID #20 tablet 06/15/17 Unknown Rx [Bactrim DS TAB] traMADol [Ultram 50 MG tab] 50 mg PO Q6HR PRN #14 tablet 06/15/17 Unknown Rx Cephalexin [Keflex] 500 mg PO Q12HR #14 cap 06/17/17 Unknown Rx Hydroxyzine HCl 25 mg PO BID #14 tablet 06/17/17 Unknown Rx Triamcinolone 0.1% [Kenalog 0.1% 1 applic TP TID #1 tube 06/17/17 Unknown Rx CREAM] ED Physical Exam - General Limitations: No Limitations General appearance: alert, in no apparent distress - Head Head exam: Present: atraumatic, normocephalic - Eye Eye exam: Present: normal appearance, EOMI - ENT ENT exam: Present: mucous membranes moist - Neck Neck exam: Present: normal inspection, full ROM. Absent: tenderness - Respiratory Respiratory exam: Present: normal lung sounds bilaterally. Absent: respiratory distress, wheezes, rales, rhonchi, stridor - Cardiovascular Cardiovascular Exam: Present: regular rate, normal rhythm, normal heart sounds. Absent: systolic murmur, diastolic murmur, rubs, gallop - GI/Abdominal GI/Abdominal exam: Present: soft, normal bowel sounds. Absent: distended, tenderness, guarding, rebound, rigid - Extremities Exam Extremities exam: Present: normal inspection, full ROM - Back Exam Back exam: Present: normal inspection, full ROM. Absent: tenderness - Neurological Exam Neurological exam: Present: alert, oriented X3, normal gait - Psychiatric Psychiatric exam: Present: normal affect, normal mood - Skin Skin exam: Present: warm, dry, rash, urticaria (bilateral arms and legs and trunk) ED Course Vital Signs 06/17/17 06/17/17 12:09 15:30 Temperature 98.9 F Pulse Rate 81 86 Respiratory 14 20 Rate Blood Pressure 140/81 Blood Pressure 152/89 [Left] O2 Sat by Pulse 94 97 Oximetry ED Medical Decision Making - Lab Data Result diagrams: 06/17/17 14:12 06/17/17 14:12 Labs 06/17/17 06/17/17 14:12 14:12 WBC 13.5 H RBC 4.83 Hgb 12.1 Hct 37.4 MCV 78 L MCH 25 L MCHC 32 RDW 15.1 Plt Count 406 Lymph % (Auto) 10.2 L [place] % (Auto) 4.6 Eos % (Auto) 0.3 Baso % (Auto) 0.4 Lymph # 1.4 [place] # 0.6 Eos # 0.0 Baso # 0.0 Seg Neutrophils % 84.5 H Seg Neutrophils # 11.4 H Sodium 134 L Potassium 3.8 Chloride 92.9 L Carbon Dioxide 23 Anion Gap 22 BUN 23 H Creatinine 1.2 Estimated GFR 45 BUN/Creatinine Ratio 19.16 Glucose 110 H Calcium 9.5 - Medical Decision Making 66 year old female presents to ED with rash/erythema to bilateral arms and legs. patient is stable, neurologically intact and in no acute distress. patient has been given keflex to take and understands and agrees to discontinue bactrim and tramadol due to possible allergic reactions. patient has blood cultures pending. ED Disposition Clinical Impression: Allergic reaction caused by a drug Qualifiers: Encounter type: initial encounter Qualified Code(s): T78.40XA - Allergy, unspecified, initial encounter Disposition: DC-01 TO HOME OR SELFCARE Is pt being admited?: No Does the pt Need Aspirin: No Condition: Stable Instructions: Urticaria (ED) Prescriptions: Cephalexin [Keflex] 500 mg PO Q12HR #14 cap Hydroxyzine HCl 25 mg PO BID #14 tablet Triamcinolone 0.1% [Kenalog 0.1% CREAM] 1 applic TP TID #1 tube Referrals: CHUY CARTAGENA JR, MD [Primary Care Provider] - 2-3 Days This documentation as recorded by the GIOVANY rosenberg PEARL,accurately reflects the service I personally performed and the decisions made by ,SAHARA HAGER, PA.
== END 2017-06-17 16:29 | disposition home or self-care (01) ==
LOC: ED 11:21
DX: T78.40XA Allergy, unspecified, initial encounter (principal); I10 Essential (primary) hypertension; E11.9 Type 2 diabetes mellitus without complications; A41.9 Sepsis, unspecified organism; E78.00 Pure hypercholesterolemia, unspecified; Z79.4 Long term (current) use of insulin
CPT/HCPCS: 36415; 80048; 85025; 87040; 99283

== ENCOUNTER 2019-01-24 12:25 | Outpatient (CLI) | payer MEDICARE ==
--- NOTE | 2019-01-24 12:49 | XRay Report ---
CHEST TWO VIEWS: 01/24/19 12:25:00 CLINICAL: Fall and chest pain. COMPARISON: 10/07/16 FINDINGS: Normal heart and pulmonary vasculature. Hypertensive changes in the aorta. A few scattered calcified granulomata in the lungs. No airspace disease or pleural effusion. No pneumothorax.Exaggerated thoracic kyphosis and anterior wedging of the T7 vertebral body. However, no fracture line identified. Multilevel thoracic spondylosis. IMPRESSION: Age-indeterminate but probably chronic T7 mild anterior wedge compression fracture.No apparent traumatic injury. Old granulomatous disease.
== END 2019-01-24 12:26 | disposition home or self-care (01) ==
LOC: SPVIMAG 12:25
PROVIDERS: ATTEND Internal Medicine
DX: M47.814 Spondylosis without myelopathy or radiculopathy, thoracic region (principal); E88.89 Other specified metabolic disorders; I10 Essential (primary) hypertension; E11.9 Type 2 diabetes mellitus without complications; E66.01 Morbid (severe) obesity due to excess calories; E78.00 Pure hypercholesterolemia, unspecified; W19.XXXA Unspecified fall, initial encounter
CPT/HCPCS: 71046